=== PATIENT | female | born 1995 | race African-American/Black ===

== ENCOUNTER 2016-06-26 20:45 | Emergency (ER) | payer SELFPAY ==
[~2016-06-26 20:45] MED LIST: LORA10TA68 PO
[2016-06-26 21:02] VITALS: BP 146/87
--- NOTE | 2016-06-26 21:35 | PHYS DOC ---
General Chief Complaint: DIZZY/LIGHT HEADED Stated Complaint: LIGHT HEADED Time Seen by MD: 21:00 Source: patient, other Problems: History of Present Illness Initial Comments Patient with friend for nosebleed. Patient first tells me that she is here because of nosebleed which started about an hour and half prior to physician visit. She says she just suddenly started having a severe nosebleed that lasted about 20 minutes as well as unravel the story further, however, it appears that she is felt sick since Thursday. She's had a runny nose and nasal congestion productive of green nasal mucus. She also has some congested-type feelings in the bridge of the nose. She says she has a diffuse headache, but when asked where she hurts the most she seems to point the left frontal sinus area. She's had no sore throat. She does have a cough productive of green mucus as well. There is no chest pain or shortness of breath. There is no earache. No nausea vomiting or abdominal pain as no change amount or bladder habits no focal extremity or neurologic complaints are noted. She says her last period was the first of the month and she denies chance of . Patient has no history of injury or trauma to the face which would account for nosebleed. She's not had a nosebleed like this before. Patient's taken multiple [id number] cough and cold medications for this at home without help. She notes no other increased or decreasing factors. Patient's past medical history is otherwise unremarkable. She is a nonsmoker and nonuser of ethanol. It should be noted the patient's affect throughout the evaluation is somewhat hostile and challenging, and she appears to answer every question and participate in with exam with exasperated tone and affect. Allergies: Coded Allergies: No Known Drug Allergies (Unverified , 07/08/13) Past Medical History Medical History: no pertinent history Surgical History: noncontributory Social History Smoker: non-smoker Alcohol: none Review of Systems All Other Systems: Reviewed and Negative Physical Exam General Appearance: WD/WN, no apparent distress Eyes: bilateral eye EOMI, bilateral eye PERRL, bilateral eye normal inspection Ear, Nose, Throat: normal ENT inspection, normal pharynx, other Neck: full range of motion, supple, normal inspection Respiratory: lungs clear, normal breath sounds, no respiratory distress Cardiovascular: regular rate, rhythm, no edema Gastrointestinal: non tender, soft, no organomegaly Back: no CVA tenderness, no vertebral tenderness Extremities: non-tender, normal inspection, no pedal edema Neurologic/Psychiatric: liquid flavor compounder II-XII nml as tested, no motor/sensory deficits, alert, normal mood/affect, oriented x 3 Skin: normal color Lymphatic: no adenopathy Comments Generally this well-developed well-nourished black female in no acute distress. Vitals are as noted. Pertinent findings on physical exam shows a head atraumatic normocephalic. Pupils are equal reactive light and accommodation. Extra ocular movements are intact. Ears and throat are clear. The nose shows a small amount of clear nasal mucus. There is no active bleeding and no dried red blood. Is no signs of trauma. She is mildly tender over the ethmoid sinuses bilaterally and also over the left frontal sinus. Scalp is otherwise nontender. Neck is supple without adenopathy or JVD. There's no meningeal signs. Chest is clear and cardiac vascular exams unremarkable. Externally show no rashes, cyanosis, or edema. Neurologic exam shows patient awake alert oriented 4. Cranial nerves II grossly intact. Strength 5 over 5 equal all sites tested. There are no gross sensory deficits. She stands without difficulty and Romberg is negative. Affect is challenging as noted in history. Remainder of physical exam is clinically unremarkable. Orders, Labs, Meds Old charts note prior ER visits for gastroenteritis and achilles strain. I discussed with the patient the most likely cause her symptoms sounds like she has some sinusitis, and may have had a little bit of nosebleed from sinus irritation. I suggested that we'll we can certainly give her some prescription decongestant as well as get her started on some antibiotics. The patient seems very angry and agitated by this assessment. She says that it was not a "little nose bleed", and that she bled for 20 minutes. I indicated that I don't doubt which she says, but fortunately she is not actively bleeding now and I don't see any dried red blood in the nose. I really think this is probably from a sinus infection and I don't think labs or x-rays would be helpful to us. I did indicate that we'll give her an initial doses of medications here in the ED says she will have the prescription filled at night. I will write her prescriptions for Holden Christinassionex, and Amoxil, with the latter to a first dose tonight. We'll also discussed home care including rest, increasing fluids, use of steam treatments for her sinuses. I will advise her to follow-up with primary care or return to the ER sooner as needed if worsen anyway. She looks well, in no acute discomfort distress, okay for discharge home at this time. MARY MAHMOOD MD Jun 26, 2016 21:35
[2016-06-26] MEDS ORDERED: HYDROCODONE/CHLORPHEN POLIS 5 ML SUS.ER.12H. ONE (21:43)
[2016-06-26] MEDS ORDERED: AMOXICILLIN 500 MG CAPSULE ONE (21:43)
[2016-06-26] MEDS ORDERED: OXYMETAZOLINE 0.05% NASAL SPRAY 15ML BOTTLE. NS ONE ×2 (21:45→22:00)
[2016-06-26] MEDS ORDERED: AMOXICILLIN 500 MG CAPSULE PO ONE (22:00)
[2016-06-26] MEDS ORDERED: HYDROCODONE/CHLORPHEN POLIS 5 ML SUS.ER.12H. PO ONE (22:00)
== END 2016-06-26 21:50 | disposition home or self-care (01) ==
LOC: ER 20:45
DX: R04.0 Epistaxis (principal); J32.9 Chronic sinusitis, unspecified; R51 Headache
CPT/HCPCS: 99284

== ENCOUNTER 2016-11-01 09:51 | Emergency (ER) | payer SELFPAY ==
[~2016-11-01] VITALS: Ht 172.7 cm; Wt 63.5 kg
[2016-11-01 09:58] VITALS: BP 144/67
[2016-11-01] MEDS ORDERED: AMOX1TAB61 PO (10:54)
[2016-11-01] MEDS ORDERED: HYDR-971 PO (10:54)
--- NOTE | 2016-11-01 10:54 | PHYS DOC ---
Past History Past Medical History: No Pertinent History Past Surgical History: Other Smoking: Non-smoker Additional Smoking Information: 2ND HAND SMOKE Alcohol Use: None Drug Use: None Adult General Chief Complaint Chief Complaint: HEADACHE HPI HPI Patient is a 21-year-old female who complains of a cough, sinus congestion, and sinus headache for about 4 days. She has tried ibuprofen, Benadryl, and Sudafed as well as a multisymptom cold reliever. She is blowing green stuff out of her nose and also it is in the back of her throat. The medication she is trying aren 't helping and she can't sleep because her head is congested and has a headache. She has not had chronic headaches. She did have a bad sinus headache years ago that she thinks was like this. The pain is behind her eyes and feels like pressure. She has felt feverish but denies fever. Review of Systems Review of Systems Constitutional: Denies fever or chills [] HENT: As in history of present illness Respiratory: She has a cough but it sounds like it is coming from the back of her throat, not her lungs Allergies Allergies Allergies Coded Allergies Type Severity Reaction Last Updated Verified No Known Drug Allergies 07/08/13 No Physical Exam Physical Exam Constitutional: Well developed, well nourished, no acute distress, non-toxic appearance. Alert, mentating normally, she does have nasal stuffiness and a little cough. Swallowing without difficulty. HENT: Normocephalic, atraumatic, bilateral external ears normal, oropharynx moist, no oral exudates, throat clear without tonsillitis, nose normal. [] Eyes: conjunctiva normal, no discharge. [] Neck: Normal range of motion, no stridor. [] Skin: Warm, dry, no erythema, no rash. [] Extremities: No tenderness, no cyanosis, no clubbing, ROM intact, no edema. [] Neurologic: Alert and oriented X 3, normal motor function, no focal deficits noted. [] Current Patient Data Vital Signs Vital Signs Date Time Temp Pulse Resp B/P (MAP) Pulse Ox O2 Delivery O2 Flow Rate FiO2 11/01/16 09:58 97.4 70 16 100 Room Air EKG EKG [] Radiology/Procedures Radiology/Procedures [] Course & Med Decision Making Course & Med Decision Making Pertinent Labs and Imaging studies reviewed. (See chart for details) 21-year-old female with symptoms suggestive for sinusitis. The patient would like to take an antibiotic based on previous experience. See instructions for plan. [] Dragon Disclaimer Dragon Disclaimer This chart was dictated in whole or in part using Voice Recognition software in a busy, high-work load, and often noisy Emergency Department environment. It may contain unintended and wholly unrecognized errors or omissions. Departure Departure: Impression: Primary Impression: Sinusitis Additional Impression: Headache Disposition: HOME, SELF-CARE Condition: STABLE Referrals: PCP,PAUL (PCP) Patient Instructions: Sinusitis, [id number] Additional Instructions: I have prescribed antibiotics for a sinus infection. Take as directed. For headache pain, ibuprofen 800 mg every 6-8 hours as needed. For more severe pain, if needed, hydrocodone as directed. This is an opiate and will be sedating and constipating. No driving while taking it. It may be addictive, use sparingly. You may combine hydrocodone and ibuprofen if needed. Continue taking Sudafed for decongestant in addition to these medications. Plenty of fluids. Scripts Hydrocodone Bit/Acetaminophen (NORCO 5-325 TABLET) 1 Each Tablet 1 TAB PO PRN Q6HRS Y for PAIN, #10 TAB 0 Refills Prov: GRIS SPENCER MD 11/01/16 Amoxicillin/Potassium Clav (AUGMENTIN 875-125 TABLET) 1 Each Tablet 1 TAB PO BID, #14 TAB Prov: GRIS SPENCER MD 11/01/16 Problem Qualifiers GRIS SPENCER MD Nov 01, 2016 10:54
== END 2016-11-01 11:00 | disposition home or self-care (01) ==
LOC: ER 09:51
DX: J32.9 Chronic sinusitis, unspecified (principal); R51 Headache; Z77.22 Contact with and (suspected) exposure to environmental tobacco smoke (acute) (chronic)
CPT/HCPCS: 99283

== ENCOUNTER 2016-11-29 08:17 | Emergency (ER) | payer SELFPAY ==
[~2016-11-29 08:17] MED LIST changes: +AMOX1TAB61 PO; +HYDR-971 PO
[2016-11-29 08:26] VITALS: BP 140/72
[2016-11-29] MEDS ORDERED: IV NORMAL SALINE 1,000ML 1,000 ML IV SCH (08:33)
[2016-11-29] MEDS ORDERED: IV NORMAL SALINE 500ML 500 ML ONE (08:51)
[2016-11-29] MEDS ORDERED: ONDANSETRON PF 4 MG/2 ML VIAL. IV ONE (09:00)
[2016-11-29] MEDS ORDERED: KETOROLAC 30 MG/ML VIAL. IV ONE (09:00)
[2016-11-29 09:34] LABS: PREG TEST PT QUAL NEGATIVE (NEG)
[2016-11-29 09:35] LABS: BASO # 0.1 x10^3/uL (0.0-0.2); BASO % 1 % (0-3); EOS # 0.5 x10^3/uL (0.0-0.7); EOS % 5 % (0-3); HEMATOCRIT 35.8 % (36.0-47.0); LYMPH # 1.3 x10^3/uL (1.0-4.8); LYMPH % 15 % (24-48); MEAN CORPUSCULAR HEMOGLOBIN 29 pg (25-35); MEAN CORPUSCULAR HGB CONC 34 g/dL (31-37); MEAN CORPUSCULAR VOLUME 85 fL (79-100); MONO # 0.8 x10^3/uL (0.0-1.1); MONO % 9 % (0-9); NEUT # 6.3 x10^3uL (1.8-7.7); NEUT % 71 % (31-73); PLATELET COUNT 278 x10^3/uL (140-400); RED BLOOD COUNT 4.19 x10^6/uL (3.50-5.40); RED CELL DISTRIBUTION WIDTH 13.3 % (11.5-14.5); WHITE BLOOD COUNT 8.9 x10^3/uL (4.0-11.0)
--- NOTE | 2016-11-29 09:37 | PHYS DOC ---
Past History Past Medical History: No Pertinent History Past Surgical History: Other Smoking: Non-smoker Alcohol Use: None Drug Use: None Adult General Chief Complaint Chief Complaint: ABDOMINAL PAIN HPI HPI Patient is a 21-year-old female brought to the ED by her mother with the complaint of severe right lower quadrant abdominal pain which started about 2 hours ago. She didn't have the pain yesterday or last night. It woke her up this morning. "It's like period Pain only 1000 times worse" the patient is having vaginal bleeding this morning. Her last menstrual period was 2 or 3 weeks ago. Patient had similar pain about a month ago and was seen in the ER at [facility]. It sounds like they were concerned about appendicitis but after labs and CT scan it sounds like they did not make a diagnosis of appendicitis after all. She can't really remember what they did think was wrong. Patient has had nausea, vomiting, and diarrhea this morning. She has felt hot and cold and had sweats. She has not taken anything for her symptoms. Patient is in good general health without chronic medical problems. Review of Systems Review of Systems Constitutional: Denies fever or chills but has felt hot and cold and had sweats. HENT: Denies nasal congestion or sore throat [] Respiratory: Denies cough or shortness of breath [] Cardiovascular: Denies chest pain GI: As in history of present illness : Denies dysuria or hematuria [] Musculoskeletal: Denies back pain or joint pain [] Integument: Denies rash or skin lesions [] Neurologic: Denies headache, focal weakness or sensory changes [] Current Medications Current Medications Current Medications Medications (Trade) Dose Ordered Sig/Josh Start Time Stop Time Status Last Admin Dose Admin Fentanyl Citrate (Fentanyl 2ml Vial) 100 mcg 1X ONCE 11/29/16 09:00 11/29/16 09:01 DC 11/29/16 09:00 100 MCG Ketorolac Tromethamine (Toradol) 30 mg 1X ONCE 11/29/16 09:00 11/29/16 09:01 DC 11/29/16 09:00 30 MG Ondansetron HCl (Zofran) 4 mg 1X ONCE 11/29/16 09:00 11/29/16 09:01 DC 11/29/16 09:00 4 MG Sodium Chloride 500 ml @ As Directed STK-MED ONCE 11/29/16 08:51 11/29/16 08:52 DC Allergies Allergies Allergies Coded Allergies Type Severity Reaction Last Updated Verified No Known Drug Allergies 07/08/13 No Physical Exam Physical Exam Constitutional: Well developed, well nourished, crying, writhing on the bed. HENT: Normocephalic, atraumatic, bilateral external ears normal, nose normal. [ ] Eyes: conjunctiva normal, no discharge. [] Neck: Normal range of motion, no stridor. [] Cardiovascular:Heart rate regular rhythm, no murmur [] Lungs & Thorax: Bilateral breath sounds clear to auscultation [] Abdomen: Bowel sounds normal, soft, nondistended, no masses, no pulsatile masses. No left sided or upper abdominal tenderness. There is moderate tenderness in the suprapubic area and more significant tenderness in the right lower quadrant. The tenderness is lower than McBurney's point. There is no rebound or guarding. Skin: Warm, dry, no erythema, no rash. [] Extremities: No tenderness, no cyanosis, no clubbing, ROM intact, no edema. [] Neurologic: Alert and oriented X 3, normal motor function, no focal deficits noted. [] Current Patient Data Vital Signs Vital Signs Date Time Temp Pulse Resp B/P (MAP) Pulse Ox O2 Delivery O2 Flow Rate FiO2 11/29/16 09:24 16 100 11/29/16 08:26 74 Room Air EKG EKG [] Radiology/Procedures Radiology/Procedures Ultrasound of the pelvis read by the radiologist. No acute findings. I discussed the reading with the radiologist. There is good blood flow in both ovaries.[] Course & Med Decision Making Course & Med Decision Making Pertinent Labs and Imaging studies reviewed. (See chart for details) 21-year-old female presents with right lower quadrant abdominal/pelvic pain which woke her about 2 hours ago. The pain is lower than McBurney's point. It sounds like she was worked up for another episode of this pain about a month ago at [facility] and was found to not have appendicitis. The onset and quality of this pain does not suggest appendicitis. I discussed with the patient and her mother that we will check labs and give her some IV pain medication, they're agreeable to that plan. Patient was much more comfortable after IV pain medication. Labs unrevealing. test negative. Pelvic ultrasound unremarkable. The property and equipment clerk stated that the patient did not have any significant discomfort with transvaginal exam and she did not notice any bleeding on the probe. Discussed with the patient and her mother. This is a recurrent problem for her. I advised her to see a [facility] doctor to discuss her options for recurrent pain in conjunction with her menstrual periods. See instructions for plan. [] Dragon Disclaimer Dragon Disclaimer This chart was dictated in whole or in part using Voice Recognition software in a busy, high-work load, and often noisy Emergency Department environment. It may contain unintended and wholly unrecognized errors or omissions. Departure Departure: Impression: Primary Impression: Pelvic pain Additional Impression: Dysmenorrhea Disposition: HOME, SELF-CARE Condition: STABLE Referrals: PCP,PAUL (PCP) Patient Instructions: Dysmenorrhea, [id number] Additional Instructions: Today, we did not find any serious cause of your pain. We did not find any ovarian cyst or problem with blood flow to your ovary. We will treat your pain with anti-inflammatory pain medication but I recommend that you follow up with a [facility] doctor since you have had this pain more than once. Scripts Ibuprofen (IBUPROFEN) 800 Mg Tablet 1 TAB PO TID, #30 TAB Prov: GRIS SPENCER MD 11/29/16 Problem Qualifiers GRIS SPENCER MD Nov 29, 2016 09:37
[2016-11-29 09:52] LABS: ALBUMIN 3.4 g/dL (3.4-5.0); ALBUMIN/GLOBULIN RATIO 1.1 (1.0-1.7); CALCIUM 8.2 mg/dL (8.5-10.1); CREATININE 0.9 mg/dL (0.6-1.0); GFR 96.6; POTASSIUM 3.7 mmol/L (3.5-5.1); TOTAL BILIRUBIN 0.2 mg/dL (0.2-1.0); TOTAL PROTEIN 6.5 g/dL (6.4-8.2)
--- NOTE | 2016-11-29 11:24 | RAD ---
Pelvic ultrasound to include transabdominal and transvaginal imaging 11/29/2016 Clinical history: Pelvic pain since earlier today. Cramping. Technique: Using the distended urinary bladder as a sonographic window, a real-time ultrasound examination of the pelvis was performed. Additionally in and attempt to better evaluate the uterus and adnexa, a transvaginal ultrasound study was performed. Multiple images were obtained. Findings: The uterus is within normal limits in size and echogenicity. It measures 8.8 x 5.7 x 4.4 cm in longitudinal, transverse, and AP dimensions. The endometrial echo complex measures 4 mm in thickness which is within normal limits. No focal abnormality of the uterus is seen. Both ovaries are within normal limits in size and echogenicity. The right ovary measures 3.0 x 2.6 x 2.0 cm in size. The left ovary measures 3.3 x 2.3 x 1.2 cm in size. No adnexal mass is seen. A small amount of free fluid is seen within the pelvis. Impression: Small amount of free fluid is seen within the pelvis. Otherwise negative study.
[2016-11-29] MEDS ORDERED: IBUP800T19 PO (11:53)
== END 2016-11-29 12:02 | disposition home or self-care (01) ==
LOC: ER 08:17
DX: N94.6 Dysmenorrhea, unspecified (principal); R10.2 Pelvic and perineal pain; R11.2 Nausea with vomiting, unspecified; R19.7 Diarrhea, unspecified
CPT/HCPCS: 36415; 76830; 76856; 80053; 83690; 84703; 85025; 96361; 96374; 96375; 99285; J1885; J2405; J3010; J7030

== ENCOUNTER 2018-01-05 12:16 | Emergency (ER) | payer SELFPAY ==
[~2018-01-05] VITALS: Ht 172.7 cm; Wt 63.5 kg
[~2018-01-05 12:16] MED LIST changes: +IBUP800T19 PO
[2018-01-05 12:34] VITALS: BP 151/88
[2018-01-05 13:00] LABS: BACTERIA,URINE FEW /HPF (0-FEW); BILIRUBIN,URINE NEG (NEG); CLARITY,URINE HAZY; COLOR,URINE AMBER; GLUCOSE,URINE NEG (NEG); NITRITE,URINE NEG (NEG); RBC,URINE 0 /HPF (0-2); SQUAMOUS EPITHELIAL CELL,UR FEW /LPF; UROBILINOGEN,URINE 0.2 mg/dL (0.2 mg/dL); WBC,URINE RARE /HPF (0-4)
[2018-01-05] MEDS ORDERED: KETOROLAC 60 MG/2 ML VIAL. IM ONE (13:00)
--- NOTE | 2018-01-05 13:16 | PHYS DOC ---
Past History Past Medical History: No Pertinent History Past Surgical History: Other Smoking: Non-smoker Alcohol Use: None Drug Use: None Adult General Chief Complaint Chief Complaint: ABDOMINAL PAIN HPI HPI Patient is a 22 year old female who presents with complaining of abdominal pain since last night. Patient complaining of sudden onset of periumbilical pain as a sharp pain at 2300 during intercourse as a constant pain that didn't better and worse. Patient rated her pain 8/10 and states she had 1 episode of vomiting last night. Patient denies urinary symptoms, vaginal bleeding or spotting, fever and chills, history of the same pain. LMP was December 12 patient states she has irregular menstruation. Review of Systems Review of Systems Constitutional: Denies fever or chills [] Eyes: Denies change in visual acuity, redness, or eye pain [] HENT: Denies nasal congestion or sore throat [] Respiratory: Denies cough or shortness of breath [] Cardiovascular: No additional information not addressed in HPI [] GI: Reports abdominal pain, denies nausea, vomiting, bloody stools or diarrhea [ ] : Denies dysuria or hematuria [] Musculoskeletal: Denies back pain or joint pain [] Integument: Denies rash or skin lesions [] Neurologic: Denies headache, focal weakness or sensory changes [] Endocrine: Denies polyuria or polydipsia [] All other systems were reviewed and found to be within normal limits, except as documented in this note. Current Medications Current Medications Current Medications Medications (Trade) Dose Ordered Sig/[facility] Start Time Stop Time Status Last Admin Dose Admin Ketorolac Tromethamine (Toradol Im) 60 mg 1X ONCE 01/05/18 13:00 01/05/18 13:01 Allergies Allergies Allergies Coded Allergies Type Severity Reaction Last Updated Verified No Known Drug Allergies 07/08/13 No Physical Exam Physical Exam Constitutional: Well developed, well nourished, mild distress, non-toxic appearance. [] HENT: Normocephalic, atraumatic. [] Eyes: PERRLA, EOMI, conjunctiva normal, no discharge. [] Neck: Normal range of motion, no tenderness, supple, no stridor. [] Cardiovascular:Heart rate regular rhythm, no murmur [] Lungs & Thorax: Bilateral breath sounds clear to auscultation [] Abdomen: Bowel sounds normal, soft, no tenderness, no masses, no pulsatile masses. Vaginal exam in present of tripe finisher showed normal external genitalia, small amount of white discharge in cervix without adnexal tenderness or mass or bleeding. Skin: Warm, dry, no erythema, no rash. [] Back: No tenderness, no CVA tenderness. [] Extremities: No tenderness, no cyanosis, no clubbing, ROM intact, no edema. [] Neurologic: Alert and oriented X 3, normal motor function, normal sensory function, no focal deficits noted. [] Psychologic: Affect normal, judgement normal, mood normal. [] Current Patient Data Vital Signs Vital Signs Date Time Temp Pulse Resp B/P (MAP) Pulse Ox O2 Delivery O2 Flow Rate FiO2 01/05/18 12:34 98.5 86 16 100 Room Air Lab Results Laboratory Tests Test 01/05/18 12:45 POC Urine HCG, Qualitative hcg negative (Negative) EKG EKG [] Radiology/Procedures Radiology/[place] [address] IMAGING REPORT Signed PATIENT: NELSON WILSON ACCOUNT: [id number] : 1995 LOCATION: ER AGE: 22 SEX: F EXAM STATUS: REG ER ORD. PHYSICIAN: DAVID ARCHULETA MD REASON: pain after intercourse PROCEDURE: US PELVIS W/TV US PELVIS W/TV Clinical Indication: pt c/o supraumbilical pain since intercourse 01/05/18 2300 Comparison: Pelvic ultrasound, November 29, 2016. TECHNIQUE: Real-time ultrasound imaging of the pelvis using transabdominal and transvaginal window is performed. Findings: Uterus measures 9.6 x 5.4 x 4.1 cm. Questionable hypoechogenicity of the posterior uterine body may be an 11 mm fibroid. The endometrial stripe near the fundus measures 17 mm, in the body measures 8 mm. There is normal blood flow in the ovaries. No evidence of adnexal mass. Ovaries are similar in size. No pelvic free fluid. There is an isoechoic lesion of the right ovary measuring up to 1.9 cm. Appearance is nonspecific but may be a hemorrhagic cyst. IMPRESSION: 1. Question small hemorrhagic cyst of the right ovary. 2. No pelvic free fluid. 3. Normal blood flow in the ovaries. Electronically signed by: Gómez Guerrero MD (01/05/2018 1:52 PM) [id number] DICTATED AND SIGNED BY: GÓMEZ GUERRERO MD DATE: 01/05/18 1345 CC: DAVID ARCHULETA MD; PCP,NO ~ Course & Med Decision Making Course & Med Decision Making Pertinent Labs and Imaging studies reviewed. (See chart for details) Evaluation of patient in ER showed 22-year-old male patient with complaining of abdominal pain after intercourse. Patient had unremarkable physical exam and labs. Ultrasound showed possible small right ovarian hemorrhagic cyst. Patient felt better with treatment in ER and instructed to follow up with her primary care physician. Dragon Disclaimer Dragon Disclaimer This electronic medical record was generated, in whole or in part, using a voice recognition dictation system. Departure Departure: Impression: Primary Impression: Hemorrhagic cyst of right ovary Additional Impression: Abdominal pain Disposition: HOME, SELF-CARE (at 1424) Condition: IMPROVED Referrals: PCP,PAUL (PCP) Patient Instructions: Ovarian Cyst Additional Instructions: Drink plenty of liquids Follow-up with your primary care physician in 3-5 days Return to ER if not getting better Scripts Tramadol Hcl (ULTRAM) 50 Mg Tablet 50 MG PO PRN Q6HRS PRN for PAIN, #20 TAB Prov: DAVID ARCHULETA MD 01/05/18 Problem Qualifiers DAVID ARCHULETA MD Jan 05, 2018 13:16
--- NOTE | 2018-01-05 13:55 | RAD ---
US PELVIS W/TV Clinical Indication: pt c/o supraumbilical pain since intercourse 01/05/18 2300 Comparison: Pelvic ultrasound, November 29, 2016. TECHNIQUE: Real-time ultrasound imaging of the pelvis using transabdominal and transvaginal window is performed. Findings: Uterus measures 9.6 x 5.4 x 4.1 cm. Questionable hypoechogenicity of the posterior uterine body may be an 11 mm fibroid. The endometrial stripe near the fundus measures 17 mm, in the body measures 8 mm. There is normal blood flow in the ovaries. No evidence of adnexal mass. Ovaries are similar in size. No pelvic free fluid. There is an isoechoic lesion of the right ovary measuring up to 1.9 cm. Appearance is nonspecific but may be a hemorrhagic cyst. IMPRESSION: 1. Question small hemorrhagic cyst of the right ovary. 2. No pelvic free fluid. 3. Normal blood flow in the ovaries. Electronically signed by: Gómez Travis MD (01/05/2018 1:52 PM) [id number]
[2018-01-05] MEDS ORDERED: TRAM-48 PO (14:25)
[2018-01-06 15:08] LABS: CHLAMYDIA PROBE Negative (Negative)
== END 2018-01-05 14:42 | disposition home or self-care (01) ==
LOC: ER 12:16
DX: N83.291 Other ovarian cyst, right side (principal)
CPT/HCPCS: 36415; 76830; 76856; 81001; 81025; 87491; 87591; 96372; 99285; J1885; Q0111

== ENCOUNTER 2018-07-22 19:09 | Emergency (ER) | payer SELFPAY ==
[~2018-07-22] VITALS: Ht 172.7 cm; Wt 61.2 kg
[~2018-07-22 19:09] MED LIST changes: +HYDR-3165 PO; -HYDR-971 PO; +TRAM-48 PO
[2018-07-22 19:10] VITALS: BP 144/89
[2018-07-22] MEDS ORDERED: PENICILLIN V K 250 MG TABLET. PO STA (19:26)
[2018-07-22] MEDS ORDERED: HYDROcodone/APAP 7.5/325MG 1 TAB TABLET PO ONE (19:30)
[2018-07-22] MEDS ORDERED: HYDR-3165 PO (19:30)
[2018-07-22] MEDS ORDERED: PENI500T PO (19:30)
--- NOTE | 2018-07-22 19:30 | PHYS DOC ---
Past History Past Medical History: No Pertinent History Past Surgical History: Other Smoking: Non-smoker Alcohol Use: None Drug Use: None Adult General Chief Complaint Chief Complaint: DENTAL PROBLEM HPI HPI Patient is a 23 year old female who presents with complaint of jaw pain. Patient states that she is having pain along the right upper portion of her mouth near her back molar. States that this has been present over the past 2 da ys and is significantly worsened today. Denies any known fevers. States that her pain is currently 10 out of 10. Has taken [id number] medication with no relief. States it is painful when she opens her jaw. Denies doubling of vision. Review of Systems Review of Systems Constitutional: Denies fever or chills [] Eyes: Denies change in visual acuity, redness, or eye pain [] HENT: Facial swelling, right jaw pain[] Respiratory: Denies cough or shortness of breath [] Cardiovascular: Denies chest pain or edema[] GI: Denies abdominal pain, nausea, vomiting, bloody stools or diarrhea [] : Denies dysuria or hematuria [] Musculoskeletal: Denies back pain or joint pain [] Integument: Denies rash or skin lesions [] Neurologic: Denies headache, focal weakness or sensory changes [] All other systems were reviewed and found to be within normal limits, except as documented in this note. Allergies Allergies Allergies Coded Allergies Type Severity Reaction Last Updated Verified No Known Drug Allergies 07/22/18 No Physical Exam Physical Exam Constitutional: Alert, afebrile, appears in moderate to severe discomfort. [] HENT: Normocephalic, atraumatic, mild to moderate soft tissue swelling along right zygoma, bilateral external ears normal, oropharynx moist, right buccal mucosal erythema, tooth #1 ground completely disintegrated with exposed root, tenderness palpation along root of tooth #1, no oral exudates, nose normal. [] Eyes: PERRLA, EOMI, conjunctiva normal, no discharge. [] Neck: Normal range of motion, no tenderness, supple, no stridor. [] Cardiovascular:Heart rate regular rhythm, no murmur [] Lungs & Thorax: Bilateral breath sounds clear to auscultation [] Abdomen: Bowel sounds normal, soft, no tenderness, no masses, no pulsatile masses. [] Skin: Warm, dry, no erythema, no rash. [] Back: No tenderness, no CVA tenderness. [] Extremities: No tenderness, no cyanosis, no clubbing, ROM intact, no edema. [] Neurologic: Alert and oriented X 3, normal motor function, normal sensory function, no focal deficits noted. [] Current Patient Data Vital Signs Vital signs were reviewed and were stable Lab Results Not performed EKG EKG Not performed[] Radiology/Procedures Radiology/Procedures Not performed[] Course & Med Decision Making Course & Med Decision Making Pertinent Labs and Imaging studies reviewed. (See chart for details) Patient's clinical presentation consistent with dental infection. Treated with [place] and penicillin VK in the emergency department. We'll continue on 10 day course of penicillin. Referred to Dr. Alberts of oral maxillofacial surgery for follow-up in the next 4 days. Recommended return to the emergency department for any worsening symptoms. Patient was understanding and in agreement with treatment plan.[] Dragon Disclaimer Dragon Disclaimer This electronic medical record was generated, in whole or in part, using a voice recognition dictation system. Departure Departure: Impression: Primary Impression: Dental infection Disposition: 01 HOME, SELF-CARE Condition: IMPROVED Referrals: PCPPAUL (PCP) OMAR ALBERTS DMD Patient Instructions: Dental Pain Additional Instructions: Follow-up with Dr. Alberts in the next 4 days for reevaluation. Return to the emergency department for any worsening symptoms. Scripts Hydrocodone Bit/Acetaminophen (NORCO 5-325 TABLET) 1 Each Tablet 1-2 TAB PO Q4-6HRS PRN for PAIN, #20 TAB Prov: OSVALDO ALICIA MD 07/22/18 Penicillin V Potassium (PENICILLIN V POTASSIUM) 500 Mg Tablet 1 TAB PO QID, #40 TAB Prov: OSVALDO ALICIA MD 07/22/18 OSVALDO ALICIA MD July 22, 2018 19:30
== END 2018-07-22 19:36 | disposition home or self-care (01) ==
LOC: ER 19:13
DX: K04.7 Periapical abscess without sinus (principal)
CPT/HCPCS: 99283

== ENCOUNTER 2019-01-07 11:05 | Emergency (ER) | payer SELFPAY ==
[~2019-01-07] VITALS: Ht 172.7 cm; Wt 61.2 kg
[~2019-01-07 11:05] MED LIST changes: +PENI500T PO
[2019-01-07 11:08] VITALS: BP 120/68
[2019-01-07] MEDS ORDERED: ONDANSETRON PF 4 MG/2 ML VIAL. IVP ONE (11:30)
[2019-01-07 11:36] LABS: BASO # 0.1 x10^3/uL (0.0-0.2); BASO % 1 % (0-3); EOS # 0.4 x10^3/uL (0.0-0.7); EOS % 6 % (0-3); HEMATOCRIT 42.7 % (36.0-47.0); HEMOGLOBIN 13.6 g/dL (12.0-15.5); LYMPH % 27 % (24-48); MEAN CORPUSCULAR HEMOGLOBIN 27 pg (25-35); MEAN CORPUSCULAR HGB CONC 32 g/dL (31-37); MEAN CORPUSCULAR VOLUME 84 fL (79-100); MONO # 0.7 x10^3/uL (0.0-1.1); MONO % 10 % (0-9); NEUT # 4.2 x10^3uL (1.8-7.7); NEUT % 56 % (31-73); PLATELET COUNT 440 x10^3/uL (140-400); RED BLOOD COUNT 5.09 x10^6/uL (3.50-5.40); RED CELL DISTRIBUTION WIDTH 17.7 % (11.5-14.5); WHITE BLOOD COUNT 7.5 x10^3/uL (4.0-11.0)
[2019-01-07 11:48] LABS: PREG TEST PT QUAL NEGATIVE (NEG)
[2019-01-07 11:51] LABS: ALBUMIN 4.3 g/dL (3.4-5.0); ALBUMIN/GLOBULIN RATIO 0.9 (1.0-1.7); CALCIUM 9.2 mg/dL (8.5-10.1); CREATININE 0.8 mg/dL (0.6-1.0); GFR 108.5; POTASSIUM 4.4 mmol/L (3.5-5.1); TOTAL BILIRUBIN 0.2 mg/dL (0.2-1.0); TOTAL PROTEIN 8.9 g/dL (6.4-8.2)
--- NOTE | 2019-01-07 14:05 | ED.ADGEN ---
Past History Past Medical History: No Pertinent History Past Surgical History: Other Additional Past Surgical Histo: achilles tendon Smoking: Non-smoker Alcohol Use: None Drug Use: Marijuana Adult General Chief Complaint Chief Complaint Pelvic pain HPI HPI Patient is a 23-year-old -French female who presents with acute onset right lower quadrant/pelvic pain starting earlier this patient also reports muscle cramps, low back pain and vaginal bleeding starting yesterday. Last menstrual period was 2 weeks prior to ED arrival. Patient has an IUD in place. States she suffers from severe menstrual cramps but today's symptoms's pain is worse than prior episodes. No nausea vomiting. No urinary urgency or frequency. No fever chills or sweats. No other acute symptoms or complaints.[] Review of Systems Review of Systems Review of symptoms as per history of present illness. All other review symptoms are negative. All other systems were reviewed and found to be within normal limits, except as documented in this note. Current Medications Current Medications Current Medications Medications (Trade) Dose Ordered Sig/Josh Start Time Stop Time Status Last Admin Dose Admin Fentanyl Citrate (Fentanyl 2ml Vial) 75 mcg 1X ONCE 01/07/19 11:30 01/07/19 11:31 DC 01/07/19 11:34 75 MCG Morphine Sulfate (Morphine 4mg Syringe) 4 mg 1X ONCE 01/07/19 14:15 01/07/19 14:16 DC 01/07/19 14:01 4 MG Ondansetron HCl (Zofran) 4 mg 1X ONCE 01/07/19 11:30 01/07/19 11:31 DC 01/07/19 11:34 4 MG Allergies Allergies Allergies Coded Allergies Type Severity Reaction Last Updated Verified No Known Drug Allergies 07/22/18 No Physical Exam Physical Exam Constitutional: Well developed, well nourished, anxious, moderate discomfort secondary to pain.. [] HENT: Normocephalic, atraumatic, bilateral external ears normal, oropharynx m oist, no oral exudates, nose normal. [] Eyes: PERRLA, EOMI, conjunctiva normal, no discharge. [] Neck: Normal range of motion, no tenderness, supple, no stridor. [] Cardiovascular:Heart rate regular rhythm, no murmur [] Lungs & Thorax: Bilateral breath sounds clear to auscultation [] Abdomen: Bowel sounds normal, soft, soft, nontender.. [] Skin: Warm, dry, no erythema, no rash. [] Back: No tenderness, no CVA tenderness. [] Psychologic: Affect anxious. [] Current Patient Data Vital Signs Vital Signs Date Time Temp Pulse Resp B/P (MAP) Pulse Ox O2 Delivery O2 Flow Rate FiO2 01/07/19 14:01 16 98 01/07/19 11:08 98.3 85 Room Air Lab Results Laboratory Tests Test 01/07/19 11:24 01/07/19 14:30 White Blood Count 7.5 x10^3/uL (4.0-11.0) Red Blood Count 5.09 x10^6/uL (3.50-5.40) Hemoglobin 13.6 g/dL (12.0-15.5) Hematocrit 42.7 % (36.0-47.0) Mean Corpuscular Volume 84 fL (79-100) Mean Corpuscular Hemoglobin 27 pg (25-35) Mean Corpuscular Hemoglobin Concent 32 g/dL (31-37) Red Cell Distribution Width 17.7 % (11.5-14.5) H Platelet Count 440 x10^3/uL (140-400) H Neutrophils (%) (Auto) 56 % (31-73) Lymphocytes (%) (Auto) 27 % (24-48) Monocytes (%) (Auto) 10 % (0-9) H Eosinophils (%) (Auto) 6 % (0-3) H Basophils (%) (Auto) 1 % (0-3) Neutrophils # (Auto) 4.2 x10^3uL (1.8-7.7) Lymphocytes # (Auto) 2.0 x10^3/uL (1.0-4.8) Monocytes # (Auto) 0.7 x10^3/uL (0.0-1.1) Eosinophils # (Auto) 0.4 x10^3/uL (0.0-0.7) Basophils # (Auto) 0.1 x10^3/uL (0.0-0.2) Sodium Level 143 mmol/L (136-145) Potassium Level 4.4 mmol/L (3.5-5.1) Chloride Level 105 mmol/L (98-107) Carbon Dioxide Level 27 mmol/L (21-32) Anion Gap 11 (6-14) Blood Urea Nitrogen 5 mg/dL (7-20) L Creatinine 0.8 mg/dL (0.6-1.0) Estimated GFR (Cockcroft-Gault) 108.5 BUN/Creatinine Ratio 6 (6-20) Glucose Level 84 mg/dL (70-99) Calcium Level 9.2 mg/dL (8.5-10.1) Total Bilirubin 0.2 mg/dL (0.2-1.0) Aspartate Amino Transferase (AST) 20 U/L (15-37) Alanine Aminotransferase (ALT) 20 U/L (14-59) Alkaline Phosphatase 44 U/L (46-116) L Total Protein 8.9 g/dL (6.4-8.2) H Albumin 4.3 g/dL (3.4-5.0) Albumin/Globulin Ratio 0.9 (1.0-1.7) L Serum Test, Qualitative Negative (NEG) Urine Collection Type Unknown Urine Color Yellow Urine Clarity Hazy Urine pH 8.5 Urine Specific [place] 1.015 Urine Protein Neg (NEG-TRACE) Urine Glucose (UA) Neg mg/dL (NEG) Urine Ketones (Stick) Neg mg/dL (NEG) Urine Blood Large (NEG) Urine Nitrite Neg (NEG) Urine Bilirubin Neg (NEG) Urine Urobilinogen Dipstick 0.2 mg/dL (0.2 mg/dL) Urine Leukocyte Esterase Neg (NEG) Urine RBC Occ /HPF (0-2) Urine WBC 20-40 /HPF (0-4) Urine Squamous Epithelial Cells Mod /LPF Urine Bacteria 0 /HPF (0-FEW) EKG EKG [] Radiology/Procedures Radiology/Procedures [Pelvic ultrasound: No acute findings per radiology report] Course & Med Decision Making Course & Med Decision Making Pertinent Labs and Imaging studies reviewed. (See chart for details) [No acute lab were ultrasound findings. Recommendations are for supportive care with PIPELAYING FITTER follow-up. Return precautions reviewed.] Final Impression Final Impression [#1 pelvic pain and female #2 dysfunctional uterine bleeding] Dragon Disclaimer Dragon Disclaimer This electronic medical record was generated, in whole or in part, using a voice recognition dictation system. JOSELINE HELLER DO Jan 07, 2019 14:05
[2019-01-07] MEDS ORDERED: MORPHINE SULFATE 4 MG/ML DISP.SYRIN. IV ONE (14:15)
--- NOTE | 2019-01-07 14:50 | RAD ---
US PELVIS W/TV Clinical Indication: Menstrual cramps. Comparison: Pelvic ultrasound, January 05, 2018. TECHNIQUE: Real-time ultrasound imaging of the pelvis using transabdominal and transvaginal window is performed. Findings: Uterus measures 7.2 x 3.4 x 3.9 cm. No focal abnormality. Uterus is anteverted. Endometrial stripe is normal measuring 4 mm. The ovaries are normal. No evidence of adnexal mass. No pelvic free fluid. Urinary bladder unremarkable. IMPRESSION: Unremarkable pelvic ultrasound. Electronically signed by: Gómez Travis MD (01/07/2019 2:47 PM) [id number]
[2019-01-07 15:10] LABS: BACTERIA,URINE 0 /HPF (0-FEW); BILIRUBIN,URINE NEG (NEG); CLARITY,URINE HAZY; COLOR,URINE YELLOW; GLUCOSE,URINE NEG (NEG); NITRITE,URINE NEG (NEG); SQUAMOUS EPITHELIAL CELL,UR MOD /LPF; UROBILINOGEN,URINE 0.2 mg/dL (0.2 mg/dL)
[2019-01-07 15:17] LABS: WBC,URINE OCC /HPF (0-4)
[2019-01-07 15:21] LABS: RBC,URINE 20-40 /HPF (0-2)
== END 2019-01-07 15:17 | disposition home or self-care (01) ==
LOC: ER 11:05
DX: N93.8 Other specified abnormal uterine and vaginal bleeding (principal)
CPT/HCPCS: 36415; 76830; 76856; 80053; 81001; 84703; 85025; 96374; 96375; 99285; J2270; J2405; J3010

== ENCOUNTER 2019-03-04 14:16 | Emergency (ER) | payer SELFPAY ==
[~2019-03-04] VITALS: Ht 172.7 cm; Wt 61.9 kg
--- NOTE | 2019-03-04 14:32 | PHYS DOC ---
Past History Past Medical History: No Pertinent History Past Surgical History: Other Additional Past Surgical Histo: achilles tendon Smoking: Non-smoker Alcohol Use: None Drug Use: Marijuana Adult General Chief Complaint Chief Complaint: HAND PROBLEM [facility] HPI Patient is a 23-year-old female who presents with complaint of hand pain and injury after falling down stairs and hitting her hand last night. Patient rates pain as moderate to severe. Patient states that pain is worsened with movement. She denies any other injuries.[] Review of Systems Review of Systems Constitutional: Denies fever or chills [] Respiratory: Denies cough or shortness of breath [] Cardiovascular: No additional information not addressed in HPI [] Musculoskeletal: Positive left hand pain [] Integument: Denies rash or skin lesions [] Allergies Allergies Allergies Coded Allergies Type Severity Reaction Last Updated Verified No Known Drug Allergies 03/04/19 No Physical Exam Physical Exam Constitutional: Well developed, well nourished, no acute distress, non-toxic appearance. [] Cardiovascular:Heart rate regular rhythm, no murmur [] Lungs & Thorax: Bilateral breath sounds clear to auscultation [] Extremities: Examination of left hand demonstrates moderate tenderness to palpation around the fourth metacarpal with small amount of soft tissue swelling in this area. [] Neurologic: Alert and oriented X 3, no focal deficits noted. [] EKG EKG [] Radiology/Procedures Radiology/Procedures [] Impressions: PROCEDURE: HAND LEFT 3V EXAM: Left hand, 3 views. HISTORY: Pain. COMPARISON: None. FINDINGS: 3 views of the left hand are obtained. There is a mildly displaced oblique fracture of the fourth metacarpal. This extends to the base of the fourth metacarpal. No additional fracture is seen. There is no foreign body. 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 IMPRESSION: Mildly displaced fracture of the lower metacarpal. Electronically signed by: Michell Clarke MD (03/04/2019 2:40 PM) [id number] Course & Med Decision Making Course & Med Decision Making Pertinent Labs and Imaging studies reviewed. (See chart for details) [] Dragon Disclaimer Dragon Disclaimer This electronic medical record was generated, in whole or in part, using a voice recognition dictation system. Departure Departure: Impression: Primary Impression: Fracture of fourth metacarpal bone of left hand Disposition: 01 HOME, SELF-CARE Condition: STABLE Referrals: PCP,PAUL (PCP) VINEET BOOTH MD Patient Instructions: Hand Fracture, Metacarpals Additional Instructions: Call to schedule follow-up appointment with orthopedist. Scripts Hydrocodone Bit/Acetaminophen (NORCO 5-325 TABLET) 1 Each Tablet 1 TAB PO PRN Q6HRS PRN for PAIN, #12 TAB 0 Refills Prov: ZAINAB CLEMENTE Jr. DO 03/04/19 Diclofenac Sodium (DICLOFENAC SODIUM) 50 Mg Tablet.dr 1 TAB PO BID PRN for PAIN, #20 TAB Prov: ZAINAB CLEMENTE Jr. DO 03/04/19 Problem Qualifiers Primary Impression: Fracture of fourth metacarpal bone of left hand Encounter type: initial encounter Fracture type: closed Metacarpal location: unspecified portion of metacarpal Fracture alignment: displaced Qualified Codes: S62.305A - Unspecified fracture of fourth metacarpal bone, left hand, initial encounter for closed fracture ZAINAB CLEMENTE Jr. DO Mar 04, 2019 14:32
--- NOTE | 2019-03-04 14:43 | RAD ---
EXAM: Left hand, 3 views. HISTORY: Pain. COMPARISON: None. FINDINGS: 3 views of the left hand are obtained. There is a mildly displaced oblique fracture of the fourth metacarpal. This extends to the base of the fourth metacarpal. No additional fracture is seen. There is no foreign body. 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 IMPRESSION: Mildly displaced fracture of the lower metacarpal. Electronically signed by: Michell Clarke MD (03/04/2019 2:40 PM) [facility]
[2019-03-04] MEDS ORDERED: HYDR-3165 PO (15:10)
[2019-03-04] MEDS ORDERED: DICL50TA4 PO (15:10)
[2019-03-04] MEDS ORDERED: HYDROcodone/APAP 5/325MG 1 TAB TABLET ONE (15:17)
[2019-03-04 15:26] VITALS: BP 142/79
[2019-03-04] MEDS ORDERED: HYDROcodone/APAP 5/325MG 1 TAB TABLET PO ONE (15:30)
== END 2019-03-04 15:29 | disposition home or self-care (01) ==
LOC: ER 14:16
DX: S62.305A Unspecified fracture of fourth metacarpal bone, left hand, initial encounter for closed fracture (principal); W10.8XXA Fall (on) (from) other stairs and steps, initial encounter; Y93.89 Activity, other specified; Y92.89 Other specified places as the place of occurrence of the external cause; Y99.8 Other external cause status
CPT/HCPCS: 29125; 73130; 99284

== ENCOUNTER 2019-03-07 12:05 | Emergency (ER) | payer SELFPAY ==
[~2019-03-07] VITALS: Ht 172.7 cm; Wt 61.9 kg
[~2019-03-07 12:05] MED LIST changes: +DICL50TA4 PO
[2019-03-07 12:24] VITALS: BP 128/46
--- NOTE | 2019-03-07 12:35 | PHYS DOC ---
Past History Past Medical History: No Pertinent History Past Surgical History: No Surgical History Additional Past Surgical Histo: achilles tendon Smoking: Non-smoker Alcohol Use: None Drug Use: None Adult General Chief Complaint Chief Complaint: HAND PROBLEM HPI HPI Patient is a 23-year-old female who presents with complaint of continued hand pain and swelling after being seen here on the and diagnosed with metacarpal fracture. Patient states that she is not able to get in to see orthopedist until this Thursday. Patient states that she just wanted to have her hand looked at again because she has had an increase in swelling since she was last seen.[] Review of Systems Review of Systems Constitutional: Denies fever or chills [] Respiratory: Denies cough or shortness of breath [] Cardiovascular: No additional information not addressed in HPI [] Musculoskeletal: Positive left hand pain [] Allergies Allergies Allergies Coded Allergies Type Severity Reaction Last Updated Verified No Known Drug Allergies 03/04/19 No Physical Exam Physical Exam Constitutional: Well developed, well nourished, no acute distress, non-toxic appearance. [] Cardiovascular: Regular rate and rhythm[] Lungs & Thorax: Bilateral breath sounds clear to auscultation [] Extremities: Examination of left hand demonstrates tenderness primarily in the dorsal aspect of the hand overlying the fourth metacarpal with surrounding soft tissue swelling. [] Current Patient Data Vital Signs Vital Signs Date Time Temp Pulse Resp B/P (MAP) Pulse Ox O2 Delivery O2 Flow Rate FiO2 03/07/19 12:24 98 18 98 Room Air EKG EKG [] Radiology/Procedures Radiology/Procedures [] Course & Med Decision Making Course & Med Decision Making Pertinent Labs and Imaging studies reviewed. (See chart for details) [] Dragon Disclaimer Dragon Disclaimer This electronic medical record was generated, in whole or in part, using a voice recognition dictation system. Departure Departure: Impression: Primary Impression: Fracture of fourth metacarpal bone Disposition: HOME, SELF-CARE Condition: STABLE Referrals: PCP,NO (PCP) Patient Instructions: Hand Fracture, Metacarpals Additional Instructions: Wear hand splint as directed and keep appointment with orthopedist. Problem Qualifiers Primary Impression: Fracture of fourth metacarpal bone Encounter type: subsequent encounter Fracture type: closed Metacarpal location: unspecified portion of metacarpal Fracture alignment: displaced Laterality: left Fracture healing: with routine healing Qualified Codes: S62.305D - Unspecified fracture of fourth metacarpal bone, left hand, subsequent encounter for fracture with routine healing ZAINAB CLEMENTE Jr. DO Mar 07, 2019 12:35
== END 2019-03-07 13:01 | disposition home or self-care (01) ==
LOC: ER 12:05
DX: S62.305D Unspecified fracture of fourth metacarpal bone, left hand, subsequent encounter for fracture with routine healing (principal); X58.XXXD Exposure to other specified factors, subsequent encounter
CPT/HCPCS: 99281

== ENCOUNTER 2019-09-03 13:36 | Emergency (ER) | payer SELFPAY ==
[~2019-09-03] VITALS: Ht 172.7 cm; Wt 68.7 kg
[2019-09-03] MEDS ORDERED: KETOROLAC 30 MG/ML VIAL. IM ONE (14:00)
[2019-09-03] MEDS ORDERED: NEOMY/BACITR/POLYMYXIN OINT PACKET. TP ONE (14:00)
--- NOTE | 2019-09-03 14:11 | RAD ---
3 views left hand dated 09/03/2019. Comparison made to 03/04/2019. CLINICAL INDICATION: Pain after injury. FINDINGS: 3 views of left hand show an oblique fracture through the proximal one third shaft of the fourth metacarpal. This is in the same region as the prior exam and there is some persistent radiolucency through the shaft. There is some cortical thickening and periosteal thickening suggestive of some healing. IMPRESSION: 1. There is a fracture of the proximal fourth metacarpal shaft which was present on the 03/04/2019 exam. There is a persistent radiolucent line which could be related to incomplete healing, although refracture of a previously healed fracture is also possible. Correlate clinically. Electronically signed by: Dagoberto Shipman MD (09/03/2019 2:09 PM) [id number]
--- NOTE | 2019-09-03 14:32 | PHYS DOC ---
Past History Past Medical History: No Pertinent History Additional Past Surgical Histo: achilles tendon Smoking: Non-smoker Alcohol Use: Occasionally Drug Use: None General Adult EDM: Chief Complaint: HAND PROBLEM HPI: HPI: 24-year-old female presents with report of left hand pain which started 4-5 days ago after patient was wrestling with her older brother and hit him with her left hand. Patient reports concern for reoccurrence of fracture as she had broken the same bone back in February 2019. Patient reports at that time she had seen an orthopedic surgeon who had advised she may need surgery. Patient reports she could not afford the surgery at that time and therefore was treated with a splint only. Patient also reports discomfort to the bottom of her right great toe where she has a ulceration. Patient reports she had recently been out for wheeling with some friends and was also drinking alcohol at the time. Reports she does not remember significant injury that might explain her abrasion. Reports is been treating it with [id number] antibiotic ointment. Denies increased swelling or increased redness. Denies . Reports she last took Tylenol at 0900 for pain. Review of Systems: Review of Systems: Constitutional: Denies fever or chills : Denies Musculoskeletal: Reports left hand pain and swelling Integument: Reports lesions to right big toe and dorsum at base of pinky toe Neurologic: Denies headache, focal weakness or sensory changes Complete systems were reviewed and found to be within normal limits, except as documented in this note. Current Medications: Current Meds: Current Medications Medications (Trade) Dose Ordered Sig/Josh Start Time Stop Time Status Last Admin Dose Admin Ketorolac Tromethamine (Toradol 30mg Vial) 30 mg 1X ONCE 09/03/19 14:00 09/03/19 14:01 DC 09/03/19 14:09 30 MG Neomycin/ Polymyxin/ Bacitracin (Triple Antibiotic Ointment) 1 pkt 1X ONCE 09/03/19 14:00 09/03/19 14:01 DC 09/03/19 14:07 1 PKT Allergies: Allergies: Allergies Coded Allergies Type Severity Reaction Last Updated Verified No Known Drug Allergies 03/04/19 No Physical Exam: PE: Constitutional: Well developed, well nourished, no acute distress, non-toxic appearance HENT: Normocephalic, atraumatic Eyes: Conjunctiva normal, no discharge Neck: Normal range of motion, no tenderness, supple Cardiovascular: Left radial pulse +2, CR < 2 sec Lungs & Thorax: No respiratory distress, equal chest rise and fall Skin: Warm, dry, no erythema, healing abrasion to bottom of right great toe 2cm x 3cm, 1cm healing lesion to dorsal aspect at base of right 5th toe Extremities: Healing abrasions noted to right foot as above, left dorsal hand with swelling and tenderness to 4/5th metacarpals Neurologic: Alert and oriented X 3, no focal deficits noted Psychologic: Affect normal, judgment normal Current Patient Data: Vital Signs: Vital Signs Date Time Temp Pulse Resp B/P (MAP) Pulse Ox O2 Delivery O2 Flow Rate FiO2 09/03/19 13:40 97.9 77 20 142/56 (84) 97 Room Air EKG: EKG: [] Radiology/Procedures: Radiology/Procedures: PROCEDURE: HAND LEFT 3V 3 views left hand dated 09/03/2019. Comparison made to 03/04/2019. CLINICAL INDICATION: Pain after injury. FINDINGS: 3 views of left hand show an oblique fracture through the proximal one third shaft of the fourth metacarpal. This is in the same region as the prior exam and there is some persistent radiolucency through the shaft. There is some cortical thickening and periosteal thickening suggestive of some healing. IMPRESSION: 1. There is a fracture of the proximal fourth metacarpal shaft which was present on the 03/04/2019 exam. There is a persistent radiolucent line which could be related to incomplete healing, although refracture of a previously healed fracture is also possible. Correlate clinically. Electronically signed by: Dagoberto Shipman MD (09/03/2019 2:09 PM) [id number] Course & Med Decision Making: Course & Med Decision Making Pertinent Imaging studies reviewed. (See chart for details) Patient presents with blunt trauma injury to left hand at site of former fracture site. Patient reports she was supposed to get surgery but could not afford it and therefore allowed it to try to heal. Patient also complaining of pain to dorsum of right big toe at site of abrasion after patient had been 4 wheeling and drinking. Patient unaware of how injury occurred. There is possibility it may be secondary to a burn versus abrasion. No active signs of infection appreciated. Wound therefore cleaned and dressed with antibiotic ointment. X-ray obtained of left hand with findings of either nonhealing fracture site or reinjury along same fracture line in comparison to prior imaging. Splint applied. Patient stable for discharge with outpatient follow-up with PCP/orthopedics. Orthopedic referral provided. Discussed findings and plan with patient, who acknowledges understanding and agreement. Cliff Disclaimer: Cliff Disclaimer: This electronic medical record was generated, in whole or in part, using a voice recognition dictation system. Splinting Splinting : Location: Left hand Hand-Made Type: orthoglass Splint: ulnar (short arm) Pre-Proc Neuro Vasc Exam: normal Post-Proc Neuro Vasc Exam: normal, unchanged from pre-exam Departure Departure: Impression: Primary Impression: Metacarpal bone fracture Qualified Codes: S62.345A - Nondisplaced fracture of base of fourth metacarpal bone, left hand, initial encounter for closed fracture Additional Impression: Abrasion, foot Qualified Codes: S90.811A - Abrasion, right foot, initial encounter Disposition: HOME/RESIDENCE PRIOR TO ADM Condition: STABLE Referrals: PCP,NO (PCP) ALEM OSORIO MD Patient Instructions: Abrasion, [id number], Hand Fracture, Metacarpals, [id number], Splint Care, [id number] Additional Instructions: Use over the counter Tylenol and/or Ibuprofen for pain or discomfort. May ICE area 20 min on then leave off for next 20 min. Do not soak your wound. You may shower. Clean wound daily with soap and water. Change dressing 2 times daily. Use over the counter antibiotic ointment with each dressing change. Justification of Admission: Justification of Admission: Justification of Admission Dx: N/A DAGOBERTO CALLAHAN DO Sep 03, 2019 14:31
[2019-09-03 14:35] VITALS: BP 136/63
== END 2019-09-03 14:36 | disposition home or self-care (01) ==
LOC: ER 13:36
DX: S62.345A Nondisplaced fracture of base of fourth metacarpal bone, left hand, initial encounter for closed fracture (principal); S90.811A Abrasion, right foot, initial encounter; R60.0 Localized edema; Z98.890 Other specified postprocedural states; Z79.899 Other long term (current) drug therapy; Y08.89XA Assault by other specified means, initial encounter; Y93.89 Activity, other specified; Y92.89 Other specified places as the place of occurrence of the external cause; Y99.8 Other external cause status
CPT/HCPCS: 29125; 73130; 99283; J1885

== ENCOUNTER 2020-01-12 19:28 | Emergency (ER) | payer SELFPAY ==
[~2020-01-12] VITALS: Ht 172.7 cm; Wt 68.7 kg
--- NOTE | 2020-01-12 20:13 | PHYS DOC ---
Past History Past Medical History: No Pertinent History (TONIO UNDERWOOD APRN) Additional Past Surgical Histo: achilles tendon (TONIO UNDERWOOD APRN) Smoking: Non-smoker Alcohol Use: Occasionally Drug Use: None (TONIO UNDERWOOD APRN) Adult General Chief Complaint Chief Complaint: VAGINAL BLEEDING [facility] HPI Patient is a 24-year-old female who presents with vaginal bleeding and . Patient reports she is proximate 9 weeks , and started this morning she noticed some spotting in her underwear and on the paper after going to the bathroom. States she has had this a couple times today, states she has had some lower abdominal cramping as well today. Does state she has been feeling nauseous and has had several episodes of vomiting today as well. States no fever, no cough, no diarrhea. States this is her first , she has seen [facility], had ultrasound proximally 3 weeks ago, which was normal with time, however has next appointment in approximately 2 weeks. States she has been feeling a little worse over the last few days. (TONIO UNDERWOOD APRN) Review of Systems Review of Systems Constitutional: Denies fever or chills [] Eyes: Denies change in visual acuity, redness, or eye pain [] HENT: Denies nasal congestion or sore throat [] Respiratory: Denies cough or shortness of breath [] Cardiovascular: No additional information not addressed in HPI [] GI: Denies abdominal pain, bloody stools or diarrhea reports nausea, vomiting. [] : Denies dysuria or hematuria does reports small little vaginal bleeding with spotting. [] Musculoskeletal: Denies back pain or joint pain [] Integument: Denies rash or skin lesions [] Neurologic: Denies headache, focal weakness or sensory changes [] Endocrine: Denies polyuria or polydipsia [] All other systems were reviewed and found to be within normal limits, except as documented in this note. (TONIO UNDERWOOD APRN) Allergies Allergies Allergies Coded Allergies Type Severity Reaction Last Updated Verified No Known Drug Allergies 03/04/19 No (TONIO UNDERWOOD APRN) Physical Exam Physical Exam Constitutional: Well developed, well nourished, no acute distress, non-toxic appearance. [] HENT: Normocephalic, atraumatic, oropharynx moist, no oral exudates, nose normal. [] Eyes: PERRLA, EOMI, conjunctiva normal, no discharge. [] Neck: Normal range of motion, no tenderness, supple, no stridor. [] Cardiovascular:Heart rate regular rhythm, no murmur [] Lungs & Thorax: Bilateral breath sounds clear to auscultation [] Abdomen: Bowel sounds normal, soft, no tenderness, no masses, no pulsatile masses. [] Skin: Warm, dry, no erythema, no rash. [] Back: No tenderness, no CVA tenderness. [] Extremities: No tenderness, no cyanosis, no clubbing, ROM intact, no edema. [] Neurologic: Alert and oriented X 3, normal motor function, normal sensory function, no focal deficits noted. [] Psychologic: Affect normal, judgement normal, mood normal. [] (TONIO UNDERWOOD APRN) Current Patient Data Lab Results Laboratory Tests Test 01/12/20 20:01 POC Urine HCG, Qualitative hcg positive (Negative) (TONIO UNDERWOOD APRN) EKG EKG [] (TONIO UNDERWOOD APRN) Radiology/Procedures Radiology/Procedures PROCEDURE: OB <14 WKS W/TV Examination: Obstetric ultrasound first trimester HISTORY: History of abdominal pain, , vaginal bleeding COMPARISON: None available. FINDINGS: The uterus measures 11.7 x 7.3 x 6.2 cm. Intrauterine gestational sac identified. Single living intrauterine identified with crown-rump length measuring 2.8 cm corresponding to 9 weeks and 6 days with estimated date of delivery by ultrasound 08/10/2020. heart rate is 155 bpm. The right ovary measures 3.4 x 3.8 x 1.3 cm. The left ovary measures 3.5 x 1.5 x 1.1 cm. Small cystic structure measuring 1.4 cm the left ovary. In the right ovary there is a 1.7 cm solid echogenicity. Blood flow identified in the the right and left ovaries. IMPRESSION: 1. Single living intrauterine with 155 bpm. Gestational age corresponds to 9 weeks and 6 days. 2. A 1.7 cm solid echogenicity identified in the right ovary, uncertain etiology, could be collapsed follicle. Electronically signed by: Chao Tristan MD (01/12/2020 9:01 PM) [id number] DICTATED AND SIGNED BY: CHAO TRISTAN MD DATE: 01/12/202100 [] (TONIO UNDERWOOD APRN) Heart Score Risk Factors: Risk Factors: DM, Current or recent (<one month) smoker, HTN, HLP, family history of CAD, obesity. Risk Scores: Risk Factors: DM, Current or recent (<one month) smoker, HTN, HLP, family history of CAD, obesity. (TONIO UNDERWOOD APRN) Course & Med Decision Making Course & Med Decision Making Pertinent Labs and Imaging studies reviewed. (See chart for details) []Following zofran, patient reports she is feeling much better, is drinking PO fluids without nausea. States she no longer has cramping and nausea. With unremarkable ultrasound findings with fetus, and no anemia, believe safe for discharge. Will provide Rx for Diclegis for nausea. Recommend Follow up with OBGYN as she has scheduled already. Patient with no further questions or concerns at this time. (TONIO UNDERWOOD APRN) Dragon Disclaimer Dragon Disclaimer This electronic medical record was generated, in whole or in part, using a voice recognition dictation system. (TONIO UNDERWOOD APRN) Departure Departure: Impression: Primary Impression: Hyperemesis arising during Additional Impression: Vaginal bleeding affecting early Disposition: 01 DC HOME SELF CARE/HOMELESS Condition: GOOD Referrals: PCP,PAUL (PCP) Patient Instructions: Diet - Hyperemesis Gravidarum, Hyperemesis Gravidarum Additional Instructions: As we discussed make sure you are staying hydrated. You may take the nausea medication as needed for nausea. Continue to take your vitamins. Your blood type today is A POSITIVE. We are providing a copy of your ultrasound you may bring to your OBGYN on your next follow up. Scripts Doxylamine/Pyridoxine Hcl (ELLIS CHERRY 10-10 MG TABLET) 1 Each Tablet. 2 TAB PO QHS for Nausea & Vomiting for 24 Days, #48 TAB 0 Refills Prov: TONIO UNDERWOOD APRN 01/12/20 Attending Signature Attending Signature I have participated in the care of this patient and I have reviewed and agree with all pertinent clinical information above including history, exam, and recommendations. (ADILENE CALLAHAN DO) Problem Qualifiers TONIO UNDERWOOD APRN Jan 12, 2020 20:13 ADILENE CALLAHAN DO Jan 12, 2020 22:07
[2020-01-12] MEDS ORDERED: ONDANSETRON ODT 4 MG TAB.RAPDIS PO ONE (20:15)
--- NOTE | 2020-01-12 21:04 | RAD ---
Examination: Obstetric ultrasound first trimester HISTORY: History of abdominal pain, , vaginal bleeding COMPARISON: None available. FINDINGS: The uterus measures 11.7 x 7.3 x 6.2 cm. Intrauterine gestational sac identified. Single living intrauterine identified with crown-rump length measuring 2.8 cm corresponding to 9 weeks and 6 days with estimated date of delivery by ultrasound 08/10/2020. heart rate is 155 bpm. The right ovary measures 3.4 x 3.8 x 1.3 cm. The left ovary measures 3.5 x 1.5 x 1.1 cm. Small cystic structure measuring 1.4 cm the left ovary. In the right ovary there is a 1.7 cm solid echogenicity. Blood flow identified in the the right and left ovaries. IMPRESSION: 1. Single living intrauterine with 155 bpm. Gestational age corresponds to 9 weeks and 6 days. 2. A 1.7 cm solid echogenicity identified in the right ovary, uncertain etiology, could be collapsed follicle. Electronically signed by: Chao Tristan MD (01/12/2020 9:01 PM) [id number]
[2020-01-12 21:07] LABS: BILIRUBIN,URINE NEG (NEG); CLARITY,URINE CLEAR; COLOR,URINE COLORLESS; GLUCOSE,URINE NEG (NEG); NITRITE,URINE NEG (NEG); RBC,URINE RARE /HPF (0-2); UROBILINOGEN,URINE 0.2 mg/dL (0.2 mg/dL); WBC,URINE OCC /HPF (0-4)
[2020-01-12 21:08] LABS: BACTERIA,URINE 0 /HPF (0-FEW); SQUAMOUS EPITHELIAL CELL,UR FEW /LPF
[2020-01-12 21:09] LABS: BASO % 0 % (0-3); EOS # 0.1 x10^3/uL (0.0-0.7); EOS % 1 % (0-3); HEMATOCRIT 37.9 % (36.0-47.0); HEMOGLOBIN 12.3 g/dL (12.0-15.5); LYMPH # 2.7 x10^3/uL (1.0-4.8); LYMPH % 25 % (24-48); MEAN CORPUSCULAR HEMOGLOBIN 28 pg (25-35); MEAN CORPUSCULAR HGB CONC 32 g/dL (31-37); MEAN CORPUSCULAR VOLUME 85 fL (79-100); MONO # 1.1 x10^3/uL (0.0-1.1); MONO % 10 % (0-9); NEUT % 64 % (31-73); PLATELET COUNT 378 x10^3/uL (140-400); RED BLOOD COUNT 4.44 x10^6/uL (3.50-5.40); RED CELL DISTRIBUTION WIDTH 14.6 % (11.5-14.5)
[2020-01-12 21:19] LABS: CALCIUM 9.4 mg/dL (8.5-10.1); CREATININE 0.7 mg/dL (0.6-1.0); GFR 125.5; POTASSIUM 3.1 mmol/L (3.5-5.1)
[2020-01-12] MEDS ORDERED: DOXY1TAB3 PO (21:54)
[2020-01-12 22:12] VITALS: BP 142/66
== END 2020-01-12 22:12 | disposition home or self-care (01) ==
LOC: ER 19:28
DX: O21.0 Mild hyperemesis gravidarum (principal); O46.91 Antepartum hemorrhage, unspecified, first trimester; Z3A.09 9 weeks gestation of pregnancy
CPT/HCPCS: 36415; 76801; 76817; 80048; 81001; 81025; 84702; 85025; 86900; 86901; 99284; Q0162

== ENCOUNTER 2020-02-20 13:28 | Emergency (ER) | payer SELFPAY ==
[~2020-02-20] VITALS: Ht 172.7 cm; Wt 77.0 kg
[~2020-02-20 13:28] MED LIST changes: +DOXY1TAB3 PO
--- NOTE | 2020-02-20 14:03 | PHYS DOC ---
Past History Past Medical History: No Pertinent History (TONIO UNDERWOOD APRN) Past Surgical History: Other Additional Past Surgical Histo: LEFT KNEE, THYROID SURGERY (TONIO UNDERWOOD APRN) Smoking: Non-smoker Alcohol Use: None Drug Use: None (TONIO UNDERWOOD APRN) Adult General Chief Complaint Chief Complaint: VAGINAL BLEEDING [facility] HPI Patient is a 24-year-old female who presents with abdominal cramping for the past 3 days. Patient reports spotting since last night. Patient is approximately 15 weeks . Patient reports talking to her Y[facility] HAULER who started patient to follow-up in the ER due to continuing cramping and spotting. Patient also reports nausea which started today. Patient does report intermittent spotting throughout her , but with continued spotting and cramping she was more concerned today. Patient reports taking a vitamin. Patient denies any urinary symptoms or falls. (TONIO UNDERWOOD APRN) Review of Systems Review of Systems Constitutional: Denies fever or chills [patient reports feeling sweaty all day today] Eyes: Denies change in visual acuity, redness, or eye pain [] HENT: Denies nasal congestion or sore throat [] Respiratory: Denies cough or shortness of breath [] Cardiovascular: No additional information not addressed in HPI [] GI: Denies vomiting, bloody stools or diarrhea [patient reports abdominal cramping and nausea : Denies dysuria or hematuria,patient reports spotting that started this morn ing Musculoskeletal: Denies back pain or joint pain [] Integument: Denies rash or skin lesions [] Neurologic: Denies headache, focal weakness or sensory changes [] Endocrine: Denies polyuria or polydipsia [] All other systems were reviewed and found to be within normal limits, except as documented in this note. (TONIO UNDERWOOD APRN) Allergies Allergies Allergies Coded Allergies Type Severity Reaction Last Updated Verified No Known Drug Allergies 03/04/19 No (TONIO UNDERWOOD APRN) Physical Exam Physical Exam General: Appears well, non toxic, and comfortable Skin: Warm, diaphoretic, normal for ethnicity. HEENT: Atraumatic. PERRLA. Moist mucous membranes. Neck: Trachea midline. Normal ROM. Respiratory: Normal WOB. CTAB w/o w/r/r. No tachypnea. Cardiovascular: Regular rate and rhythm. Normal peripheral perfusion. No edema. Abdomen: Soft, tenderness with palpation to lower abdomen. no distension. Back: Normal ROM. Musculoskeletal: No swelling or deformity. Neuro: Alert and oriented x 4. MAEE. Psych: Normal affect and mood. (TONIO UNDERWOOD APRN) Current Patient Data Vital Signs Vital Signs Date Time Temp Pulse Resp B/P (MAP) Pulse Ox O2 Delivery O2 Flow Rate FiO2 02/20/20 13:41 97.0 86 18 138/83 (101) 98 Room Air (TONIO UNDERWOOD APRN) EKG EKG [] (TONIO UNDERWOOD APRN) Radiology/Procedures Radiology/Procedures [] (TONIO UNDERWOOD APRN) Heart Score Risk Factors: Risk Factors: DM, Current or recent (<one month) smoker, HTN, HLP, family history of CAD, obesity. Risk Scores: Risk Factors: DM, Current or recent (<one month) smoker, HTN, HLP, family history of CAD, obesity. (TONIO UNDERWOOD APRN) Course & Med Decision Making Course & Med Decision Making Pertinent Labs and Imaging studies reviewed. (See chart for details) [] Labs UA and ultrasound sound showed no acute concerning findings. Patient has nausea medication and prenatals at home that she is taking. Patient has follow- up with [facility] in 2 weeks. (TONIO UNDERWOOD APRN) Course & Med Decision Making I oversaw on the above date of service of this patient and discussed the care with the ASSEMBLY OPERATOR. I agree with the findings, plan of care, and disposition as documented. Patient hemodynamically stable, ambulatory, and nontoxic-appearing on discharge. Saw Liriano DO Attending ED Physician (SAW LIRIANO DO) Cliff Disclaimer Cliff Disclaimer This electronic medical record was generated, in whole or in part, using a voice recognition dictation system. (TONIO UNDERWOOD APRN) Departure Departure: Impression: Primary Impression: Vaginal bleeding before 22 weeks gestation Additional Impression: Malaise Disposition: 01 DC HOME SELF CARE/HOMELESS Condition: GOOD Referrals: PCP,PAUL (PCP) Patient Instructions: Vaginal Bleeding During , [id number] Additional Instructions: Keep taking your vitamins. Keep taking your nausea medication as pr escribed. Follow-up with your OB for your next appointment. Return to ER with any further concerns. Problem Qualifiers TONIO UNDERWOOD APRN Feb 20, 2020 14:03 SAW LIRIANO DO Feb 21, 2020 06:28
[2020-02-20] MEDS ORDERED: ONDANSETRON PF 4 MG/2 ML VIAL. IVP ONE (14:15)
[2020-02-20] MEDS ORDERED: IV NORMAL SALINE 1,000ML 1,000 ML IV ONE (14:15)
--- NOTE | 2020-02-20 14:54 | RAD ---
EXAM: Obstetrics sonogram. HISTORY: Vaginal spotting. TECHNIQUE: Sonographic imaging of a gravid uterus was performed. COMPARISON: 01/12/2020. FINDINGS: There is a single intrauterine fetus in variable presentation with a normal heart rate of 1 52 bpm. The anatomic fluid volume is grossly normal. The cervix is closed and measures 3.3 cm in samantha th. There is a posterior placenta without evidence of placenta previa. The biparietal diameter is 3.02 cm, corresponding with 15 weeks and 4 days. The head circumference is 11.31 cm, corresponding with 15 weeks and 4 days. The abdominal circumference is 8.34 cm, correspond ing with 14 weeks and 5 days. The femoral length is 1.45 cm, corresponding with 14 weeks and 2 days. The estimated gestational age patient combined ultrasound measurements is 15 weeks and 0 days. There is no acute sonographic finding. IMPRESSION: Single intrauterine fetus with normal heart rate and gestational age patient also measure ments of 15 weeks and 0 days. No acute sonographic finding. Electronically signed by: Michell Clarke MD (02/20/2020 2:52 PM) [id number]
[2020-02-20 14:59] LABS: BASO % 0 % (0-3); EOS # 0.1 x10^3/uL (0.0-0.7); EOS % 2 % (0-3); HEMATOCRIT 36.8 % (36.0-47.0); HEMOGLOBIN 11.9 g/dL (12.0-15.5); LYMPH # 1.9 x10^3/uL (1.0-4.8); LYMPH % 22 % (24-48); MEAN CORPUSCULAR HEMOGLOBIN 28 pg (25-35); MEAN CORPUSCULAR HGB CONC 32 g/dL (31-37); MEAN CORPUSCULAR VOLUME 87 fL (79-100); MONO # 0.6 x10^3/uL (0.0-1.1); MONO % 7 % (0-9); NEUT # 6.2 x10^3uL (1.8-7.7); NEUT % 70 % (31-73); PLATELET COUNT 345 x10^3/uL (140-400); RED BLOOD COUNT 4.24 x10^6/uL (3.50-5.40); RED CELL DISTRIBUTION WIDTH 14.2 % (11.5-14.5)
[2020-02-20 15:06] LABS: CALCIUM 9.4 mg/dL (8.5-10.1); CREATININE 0.7 mg/dL (0.6-1.0); GFR 125.5; POTASSIUM 3.7 mmol/L (3.5-5.1)
[2020-02-20 15:13] LABS: ALBUMIN 3.8 g/dL (3.4-5.0); TOTAL BILIRUBIN 0.1 mg/dL (0.2-1.0); TOTAL PROTEIN 7.5 g/dL (6.4-8.2)
[2020-02-20 15:17] LABS: BACTERIA,URINE 0 /HPF (0-FEW); BILIRUBIN,URINE NEG (NEG); CLARITY,URINE CLEAR; COLOR,URINE YELLOW; GLUCOSE,URINE NEG (NEG); NITRITE,URINE NEG (NEG); RBC,URINE 0 /HPF (0-2); SQUAMOUS EPITHELIAL CELL,UR MANY /LPF; UROBILINOGEN,URINE 0.2 mg/dL (0.2 mg/dL); WBC,URINE 0 /HPF (0-4)
[2020-02-20 15:47] VITALS: BP 130/71
== END 2020-02-20 15:55 | disposition home or self-care (01) ==
LOC: ER 13:28
DX: O46.92 Antepartum hemorrhage, unspecified, second trimester (principal); R53.81 Other malaise; Z3A.15 15 weeks gestation of pregnancy
CPT/HCPCS: 36415; 76815; 80053; 81001; 84702; 85025; 96361; 96374; 99284; J2405; J7030

== ENCOUNTER 2020-05-04 09:07 | Emergency (ER) | payer OTHER ==
[~2020-05-04] VITALS: Ht 172.7 cm; Wt 77.0 kg
[2020-05-04 09:17] VITALS: BP 130/80
[2020-05-04] MEDS ORDERED: CYCLOBENZAPRINE 10 MG TABLET. PO ONE (09:30)
[2020-05-04] MEDS ORDERED: ACETAMINOPHEN 500 MG TABLET PO ONE (09:30)
[2020-05-04] MEDS ORDERED: LIDOCAINE (700MG/PATCH) PATCH. TD ONE (09:32)
--- NOTE | 2020-05-04 09:42 | PHYS DOC ---
Past History Past Medical History: No Pertinent History Past Surgical History: Other Additional Past Surgical Histo: LEFT KNEE, THYROID SURGERY Smoking: Non-smoker Alcohol Use: None Drug Use: None Adult General Chief Complaint Chief Complaint: BACK PAIN - NO INJURY [facility] Patient is a patient is a 25-year-old female who presents to the emergency room complaining of back pain and posterior leg pain that started 2 days ago. Patient states she last saw her physician on Thursday and at that time she was having diarrhea. Her physician recommended that if it got any worse that she should go to the emergency room at as that is where she is going to deliver. She states that the diarrhea has resolved. 2 days ago she started having back pain that feels achy in nature but she states is severe. She woke up this morning and states that the back of her legs are starting to hurt. She denies any associated symptoms. She does not have any URI symptoms, sore throat, cough, fever, chills, sweats, shortness of breath, nausea, vomiting, diarrhea, vaginal discharge, vaginal bleeding, urinary symptoms. She has not had any kind of trauma. She states she took some Tylenol last night which did not resolve her symptoms. Pain is worse with movement. It is constant and does not feel colicky in nature. Review of Systems Review of Systems Complete ROS is negative unless otherwise documented in HPI Current Medications Current Medications Current Medications Medications (Trade) Dose Ordered Sig/[facility] Start Time Stop Time Status Last Admin Dose Admin Acetaminophen (Tylenol) 1,000 mg 1X ONCE 05/04/20 09:30 05/04/20 09:33 DC Cyclobenzaprine HCl (Flexeril) 10 mg 1X ONCE 05/04/20 09:30 05/04/20 09:33 DC Lidocaine (Lidoderm) 1 patch 1X ONCE 05/04/20 09:32 05/04/20 09:33 DC Miscellaneous (Lidoderm Patch Removal) 1 ea QHS 05/04/20 21:00 Allergies Allergies Allergies Coded Allergies Type Severity Reaction Last Updated Verified No Known Drug Allergies 03/04/19 No Physical Exam Physical Exam General: Awake, alert, NAD. Well Nourished, well hydrated. Cooperative HEENT: Atraumatic, EOMI, PERRL, airway patent, moist oral mucosa Neck: Supple, trachea midline Respiratory: CTA bilaterally, normal effort, no wheezing/crackles CV: RRR, no murmur, cap refill <2 GI: Soft, nondistended, nontender, no masses MSK: No obvious deformities, lower back tenderness Skin: Warm, dry, intact Neuro: A&O x3, speech NL, sensory and motor grossly intact, no focal deficits Psych: Normal affect, normal mood, not suicidal or homicidal Current Patient Data Vital Signs Vital Signs Date Time Temp Pulse Resp B/P (MAP) Pulse Ox O2 Delivery O2 Flow Rate FiO2 05/04/20 09:17 97.7 89 17 130/80 (97) 100 EKG EKG [] Radiology/Procedures Radiology/Procedures [] Heart Score Risk Factors: Risk Factors: DM, Current or recent (<one month) smoker, HTN, HLP, family history of CAD, obesity. Risk Scores: Risk Factors: DM, Current or recent (<one month) smoker, HTN, HLP, family history of CAD, obesity. Course & Med Decision Making Course & Med Decision Making Pertinent Labs and Imaging studies reviewed. (See chart for details) Patient is a 25-year-old female presents to the emergency room complaining of back pain and pain into her bilateral legs that is achy in nature. Patient is overall well-appearing. Her pain is constant and not intermittent making contractions highly unlikely. Patient does not have any vaginal discharge or bleeding that would suggest complications with the . Patient continues to feel the baby move. Doppler was done and baby has a good heart rate. Patient does not have any other symptoms of leg swelling, infection, shortness of breath that would suggest other pathology. It is possible that patient is starting to come down with viral syndrome and is getting myalgias. Will order a Covid swab to ensure that patient is not starting to get Covid. We will not get the results of this today. Patient is not hypoxic and does not have shortness of breath. At this time she does not need to be admitted. Patient was given Tylenol, lidocaine patches, Flexeril for her back pain as these are safe in . UA was done to rule out any kind of infection during pr egnancy. Patient has a few white blood cells and bacteria. She will be treated for UTI. Patient feeling significantly better with symptomatic care. Patient's test results and vitals while in the ED were fully reviewed and discussed with the patient. Patient is stable and at this time does not need admission to the hospital. We have discussed strict return precautions and the importance of following up with their Primary Care Physician. Patient stated understanding and was given an opportunity to ask any questions. Patient is in agreement with plan. Cliff Disclaimer Cliff Disclaimer This electronic medical record was generated, in whole or in part, using a voice recognition dictation system. Departure Departure: Impression: Primary Impression: Back pain affecting Additional Impression: UTI (urinary tract infection) Disposition: 01 DC HOME SELF CARE/HOMELESS Condition: STABLE Referrals: NON,STAFF (PCP) Patient Instructions: Back Pain in Scripts Lidocaine (Lidocaine PATCH ) 1 Each Adh..patch 1 EACH TP DAILY for FOR LOCAL PAIN for 5 Days, #5 PATCH REMOVE AFTER 12 HOURS Prov: PHUONG STEWART MD 05/04/20 Cyclobenzaprine Hcl (CYCLOBENZAPRINE HCL) 10 Mg Tablet 1 TAB PO TID PRN for PAIN, #12 TAB Prov: PHUONG STEWART MD 05/04/20 Nitrofurantoin Monohyd/M-Cryst (MACROBID 100 MG CAPSULE) 100 Mg Capsule 1 CAP PO BID for UTI for 5 Days, #10 CAP 0 Refills Prov: PHUONG STEWART MD 05/04/20 Problem Qualifiers PHUONG STEWART MD May 04, 2020 09:42
[2020-05-04 10:12] LABS: BACTERIA,URINE FEW /HPF (0-FEW); BILIRUBIN,URINE NEG (NEG); CLARITY,URINE HAZY; COLOR,URINE YELLOW; GLUCOSE,URINE NEG (NEG); NITRITE,URINE NEG (NEG); RBC,URINE 0 /HPF (0-2); SQUAMOUS EPITHELIAL CELL,UR MANY /LPF; UROBILINOGEN,URINE 0.2 mg/dL (0.2 mg/dL)
[2020-05-04 10:13] LABS: AMORPHOUS SEDIMENT,UR PRESENT /HPF
[2020-05-04] MEDS ORDERED: NITR100C62 PO (10:47)
[2020-05-04] MEDS ORDERED: CYCL-331 PO (10:47)
[2020-05-04] MEDS ORDERED: LIDO700A21 TP (10:47)
[2020-05-04] MEDS ORDERED: PATCH REMOVAL. MC SCH (21:00)
--- NOTE | 2020-05-07 11:33 | NUR ---
Infection Prevention: Call to pt's listed number, . Incorrect number, no additional information. Addendum: 05/07/20 at 1140 by RUFUS NORTH RN Unable to obtain correct number to reach pt, letter sent to pt's listed address, requesting return call. No results included.
== END 2020-05-04 10:54 | disposition home or self-care (01) ==
LOC: ER 09:15
DX: O23.42 Unspecified infection of urinary tract in pregnancy, second trimester (principal); M54.5 Low back pain; M79.605 Pain in left leg; M79.604 Pain in right leg; Z20.822 Contact with and (suspected) exposure to COVID-19; Z3A.25 25 weeks gestation of pregnancy
CPT/HCPCS: 81001; 87086; 99284; C9803; U0003; 87077

== ENCOUNTER 2020-05-15 11:17 | Emergency (ER) | payer OTHER ==
[~2020-05-15] VITALS: Ht 172.7 cm; Wt 77.0 kg
[~2020-05-15 11:17] MED LIST changes: +CYCL-331 PO; +LIDO700A21 TP; +NITR100C62 PO
[2020-05-15 11:28] VITALS: BP 156/94
--- NOTE | 2020-05-15 12:14 | PHYS DOC ---
Past History Past Medical History: No Pertinent History Past Surgical History: Other Additional Past Surgical Histo: LEFT KNEE, THYROID SURGERY Smoking: Non-smoker Alcohol Use: None Drug Use: None General Adult EDM: Chief Complaint: BACK PAIN - NO INJURY HPI: HPI: Patient is a 25-year-old female who presents with back pain that started last night. Patient states that she was laying in bed when the middle of her upper back started hurting. Patient has a history of scoliosis and is 5 months . Seen here last week for the same complaint and given Tylenol and lidocaine patches at that time. Patient reports the pain is worse with deep breathing and with laying down. Denies retention or incontinence of bowel or bladder. Patient describes pain as a sharp. Denies radiation. Patient states that she used a lidocaine patch and Tylenol with little relief. Denies injury Review of Systems: Review of Systems: Constitutional: Denies fever or chills Eyes: Denies change in visual acuity HENT: Denies nasal congestion or sore throat Respiratory: Denies cough or shortness of breath Cardiovascular: Denies chest pain or edema GI: Denies abdominal pain, nausea, vomiting, bloody stools or diarrhea : Denies dysuria Musculoskeletal: Reports middle back pain Integument: Denies rash Neurologic: Denies headache, focal weakness or sensory changes Endocrine: Denies polyuria or polydipsia Lymphatic: Denies swollen glands Psychiatric: Denies depression or anxiety Allergies: Allergies: Allergies Coded Allergies Type Severity Reaction Last Updated Verified No Known Drug Allergies 03/04/19 No Physical Exam: PE: Constitutional: Well developed, well nourished, no acute distress, non-toxic appearance. [] HENT: Normocephalic, atraumatic, bilateral external ears normal, oropharynx moist, no oral exudates, nose normal. [] Eyes: PERRLA, EOMI, conjunctiva normal, no discharge. [] Neck: Normal range of motion, no tenderness, supple, no stridor. [] Cardiovascular:Heart rate regular rhythm, no murmur [] Lungs & Thorax: Bilateral breath sounds clear to auscultation [] Abdomen: Bowel sounds normal, soft, no tenderness, no masses, no pulsatile masses. [] Skin: Warm, dry, no erythema, no rash. [] Back: Midline thoracic, tenderness, no CVA tenderness. [] Extremities: No tenderness, no cyanosis, no clubbing, ROM intact, no edema. [] Neurologic: Alert and oriented X 3, normal motor function, normal sensory function, no focal deficits noted. [] Psychologic: Affect normal, judgement normal, mood normal. [] Current Patient Data: Vital Signs: Vital Signs Date Time Temp Pulse Resp B/P (MAP) Pulse Ox O2 Delivery O2 Flow Rate FiO2 05/15/20 11:28 98.6 18 156/94 (114) Room Air EKG: EKG: [] Radiology/Procedures: Radiology/Procedures: [] Heart Score: C/O Chest Pain: No Risk Factors: Risk Factors: DM, Current or recent (<one month) smoker, HTN, HLP, family history of CAD, obesity. Risk Scores: Score 0 - 3: 2.5% MACE over next 6 weeks - Discharge Home Score 4 - 6: 20.3% MACE over next 6 weeks - Admit for Clinical Observation Score 7 - 10: 72.7% MACE over next 6 weeks - Early Invasive Strategies Course & Med Decision Making: Course & Med Decision Making Pertinent Labs and Imaging studies reviewed. (See chart for details) [] Patient is complaining of midline thoracic back pain. Patient was seen here last week for the same complaint. Patient has a history of scoliosis and is 5 months . Patient was given Tylenol and lidocaine patches at that time for pain relief. Patient is given Tylenol in the emergency room. States that she called her OB has not had a return phone call. Discussed stretching, belly bands to help support her back. Patient states that she understands and she is going to follow-up with OB. Patient can continue taking Tylenol at home for discomfort. Patient is hemodynamically stable and able to ambulate on her own. [email or web address] Disclaimer: [employer] Disclaimer: This electronic medical record was generated, in whole or in part, using a voice recognition dictation system. Departure Departure: Impression: Primary Impression: Back pain affecting in second trimester Disposition: 01 DC HOME SELF CARE/HOMELESS Condition: STABLE Referrals: NON,STAFF (PCP) Patient Instructions: Back Pain in Additional Instructions: You were seen in the emergency room today for back pain. You were given Tylenol in the emergency room for discomfort. You can continue to take Tylenol at home for pain and follow-up with your OB for further management. Return to the emergency room with worsening symptoms or concerns. EMERGENCY DEPARTMENT GENERAL DISCHARGE INSTRUCTIONS Thank you for coming to [facility] (ED) today and trusting us with you care. We trust that you had a positivie experience in our Emergency Department. If you wish to speak to the department management, you may call the director at [phone]. YOUR FOLLOW UP INSTRUCTIONS ARE FOLLOWS: 1. Do you have a private Doctor? If you do not have a private doctor, please ask for a resource list of physicians or clinics that may be able to assist you with follow up care. 2. The Emergency Physician has interpreted your x-rays. The X-Ray specialist will also review them. If there is a change in the findings, you will be notified in 48 hours when at all possible. 3. A lab test or culture has been done, your results will be reviewed and you will be notified if you need a change in treatment. ADDITIONAL INSTRUCTIONS AND INFORMATION: 1. Your care today has been supervised by a physician who is specially trained in emergency care. Many problems require more than one evaluation for a complete diagnosis and treatment. We recommend that you schedule your follow up appointment as recommended to ensure complete treatment of you illness or injury. If you are unable to obtain follow up care and continue to have a problem, or if your condition worsens, we recommend that you return to the ED. 2. We are not able to safely determine your condition over the phone nor are we able to give sound medical advice over the phone. For these safety reasons, if you call for medical advice we will ask you to come to the ED for further evaluation. 3. If you have any questions regarding these discharge instructions please call the ED at [phone]. SAFETY INFORMATION: In the interest of safety, wellness, and injury prevention; we encourage you to wear your sealbelt, if you smoke; quite smoking, and we encourage family to use a protective helmet for bicycling and other sporting events that present an increased risk for head injury. IF YOUR SYMPTOMS WORSEN OR NEW SYMPTOMS DEVELOP, OR YOU HAVE CONCERNS ABOUT YOUR CONDITION; OR IF YOUR CONDITION WORSENS WHILE YOU ARE WAITING FOR YOUR FOLLOW UP APPOINTMENT; EITHER CONTACT YOUR PRIMARY CARE DOCTOR, THE PHYSICIAN WHOSE NAME AND NUMBER YOU WERE GIVEN, OR RETURN TO THE ED IMMEDIATELY. DARVIN MAHER APRN May 15, 2020 12:14
[2020-05-15] MEDS ORDERED: ORPHENADRINE CITRATE 60 MG/2 ML VIAL. IM ONE (12:15)
[2020-05-15] MEDS ORDERED: DEXAMETHASONE 4 MG TABLET PO ONE (12:15)
[2020-05-15] MEDS ORDERED: ACETAMINOPHEN 325 MG TABLET PO ONE (12:30)
== END 2020-05-15 13:21 | disposition home or self-care (01) ==
LOC: ER 11:17
DX: O26.892 Other specified pregnancy related conditions, second trimester (principal); M54.6 Pain in thoracic spine; Z3A.24 24 weeks gestation of pregnancy
CPT/HCPCS: 99282

== ENCOUNTER 2020-10-03 19:53 | Emergency (ER) | payer OTHER ==
[~2020-10-03] VITALS: Ht 172.7 cm; Wt 60.7 kg
[2020-10-03 20:30] VITALS: BP 144/81
--- NOTE | 2020-10-03 20:40 | PHYS DOC ---
Past History Past Medical History: No Pertinent History Past Surgical History: Other Additional Past Surgical Histo: LEFT KNEE, THYROID SURGERY Smoking: Non-smoker Alcohol Use: None Drug Use: None Adult General Chief Complaint Chief Complaint: HEADACHE HPI HPI Patient is a 25-year-old female who presents with a chief complaint of cough, congestion, chills and sweats, and a whole head headache over the past couple of days. States he only thing she took with some Motrin 2 PM. States she has had some chills and sweats but had not taken her temperature. Denies any recent traumas, travels, known ill contacts, chest pain, shortness of breath, abdominal pain, nausea, vomiting, diarrhea. Review of Systems Review of Systems Review of systems otherwise unremarkable except noted in HPI Allergies Allergies Allergies Coded Allergies Type Severity Reaction Last Updated Verified No Known Drug Allergies 03/04/19 No Physical Exam Physical Exam Constitutional: Well developed, well nourished, no acute distress, non-toxic appearance. [] HENT: Normocephalic, atraumatic, tympanic membranes normal, oropharynx moist, no oral exudates, nose normal. [] Eyes: conjunctiva normal, no discharge. [] Neck: Normal range of motion, no tenderness, supple, no stridor. [] Cardiovascular:Heart rate regular rhythm, no murmur [] Lungs & Thorax: Bilateral breath sounds with mild rhonchi Abdomen: Bowel sounds normal, soft, no tenderness, no masses, no pulsatile masses. [] Skin: Warm, dry, no erythema, no rash. [] Extremities: No tenderness, no cyanosis, no clubbing, ROM intact, no edema. [] Neurologic: Alert and oriented X 3, n no focal deficits noted. [] Psychologic: Affect normal, judgement normal, mood normal. [] EKG EKG [] Radiology/Procedures Radiology/Procedures [] Heart Score C/O Chest Pain: No Risk Factors: Risk Factors: DM, Current or recent (<one month) smoker, HTN, HLP, family history of CAD, obesity. Risk Scores: Risk Factors: DM, Current or recent (<one month) smoker, HTN, HLP, family history of CAD, obesity. Course & Med Decision Making Course & Med Decision Making Patient is 25-year-old female presents with Covid/flu/cold symptoms for couple days Vital signs not concerning . Physical exam noted above. Patient given Tylenol, ibuprofen and Benadryl as well as cough syrup. Patient requesting Covid swab. Declined chest x-ray. Asked to be discharged home after her Covid swab. Gave Covid education and instructions. Advised to follow-up in the morning with primary care. Gave return precautions to the ED. Patient grateful, verbalized understanding and agreed with plan of discharge. Dragon Disclaimer Dragon Disclaimer This electronic medical record was generated, in whole or in part, using a voice recognition dictation system. Departure Departure: Impression: Primary Impression: Viral syndrome Disposition: HOME / SELF CARE / HOMELESS Condition: STABLE Referrals: PCP,PAUL (PCP) THERON INGRAM Patient Instructions: Viral Syndrome Additional Instructions: Thank you for coming into the emergency department tonight and allowing us to take care of you. Please read all the attached information very carefully to go over things we discussed. You can continue Tylenol, ibuprofen, and Benadryl as well as cough syrup at home as we discussed. Please call your primary care physician in the morning to update on your ED visit and set up a follow-up. Please come back to the ED with new or concerning symptoms. You have been tested for COVID-19. It is an infection caused by a new type of coronavirus. COVID-19 will cause cold-like or mild flu symptoms in most. It can cause more severe symptoms like problems breathing in some. There is no treatment for COVID-19. The body will clear the infection over time. Self-care will help to ease discomfort. Steps to Take: Self-Care Rest as needed. Healthy habits may help you feel better. Steps include: Choose healthy foods including fruits and vegetables. Drink water throughout the day. Get plenty of sleep each night. If you smoke, try to quit. It may ease breathing. Avoid alcohol. Keep Others Healthy The virus can spread to others. Droplets are released every time you sneeze or cough. The droplets can get into the mouth, nose, or eyes of people near you and lead to infection. To lower the chances of spreading COVID-19 to others: Stay at home until your doctor has said it is safe to leave. If you tested positive this will mean staying isolated until both of the following are true: At least 7 days have passed since the start of illness. You are free of fever for at least 72 hours without the use of medicine. During this time: - Avoid public areas, events, or transportation. Do not return to work or school until your doctor has said it is safe to do so. - Call ahead if you need to go to a medical center. Let them know you may have COVID-19. It will help them guide you where to go. They may also ask you to wear a facemask when you come to the office. - If you call for emergency medical services, let them know you may have COVID- 19. While at home: - Try to avoid close contact with others. Stay about 6 feet away. - If possible, spend most of your time in a separate room from others. - Use a face mask if you will be in close contact with others such as sharing a room or vehicle. - Have someone wipe down common surfaces in the home. Use household forestry extension specialist every day on areas like doorknobs, counters, or sinks. - Cough or sneeze into a tissue. Throw the tissue away right after use. If a tissue is not available, cough or sneeze into your elbow. - Wash your hands often. Wash them after sneezing or coughing. Use soap and w ater and wash for at least 20 seconds. Alcohol based hand cleaner industrial can be used if soap and water is not available. - Do not prepare food for others. Avoid sharing personal items like forks, spoons, or toothbrushes. - Avoid close contact with pets while you are sick. There is no evidence of the virus passing to pets. This is a safety step until more is known about this virus. Isolation can be frustrating. Social interaction can help. Keep in touch with friends and family through phone and tech options. You can still interact with others in your home, just keep a safe distance of about 6 feet. Follow-up: Your doctors office will check in with you to see if there are any changes in your health. You may be asked to keep track of symptoms to share with them. They will also let you know when you are clear to be in public again. Problems to Look Out For: Contact your doctor if your recovery is not going as you expect. Get emergency care if you have problems such as: - Trouble breathing - Nonstop chest pain or pressure - Changes in awareness, confusion, or problems waking - Lips or face have bluish color - Worsening of symptoms If you think you have an emergency, call for emergency medical services right away. [facility] Oct 03, 2020 20:40
[2020-10-03] MEDS ORDERED: ACETAMINOPHEN 500 MG TABLET PO ONE (20:45)
[2020-10-03] MEDS ORDERED: diphenhydrAMINE HCL 25 MG CAPSULE PO ONE (20:45)
[2020-10-03] MEDS ORDERED: guaiFENesin DM 200MG/20MG 10 ML SYRUP PO ONE (21:30)
[2020-10-03] MEDS ORDERED: IBUPROFEN 400 MG TABLET. PO ONE (21:30)
--- NOTE | 2020-10-05 10:28 | NUR ---
IP: Attempted to contact pt concerning covid results. No answer, no voicemail.
== END 2020-10-03 21:25 | disposition home or self-care (01) ==
LOC: ER 19:53
DX: U07.1 COVID-19 (principal); B34.9 Viral infection, unspecified
CPT/HCPCS: 99284; U0005; U0003

== ENCOUNTER 2021-07-09 18:47 | Emergency (ER) | payer OTHER ==
[~2021-07-09] VITALS: Ht 175.3 cm; Wt 60.7 kg
[~2021-07-09 18:47] MED LIST changes: -CYCL-331 PO; +CYCL10TA19 PO
[2021-07-09 19:10] VITALS: BP 140/83
--- NOTE | 2021-07-09 19:21 | PHYS DOC ---
Past History Past Medical History: No Pertinent History Past Surgical History: No Surgical History Additional Past Surgical Histo: left ankle Smoking: Non-smoker Alcohol Use: None Drug Use: None Adult General Chief Complaint Chief Complaint: ABDOMINAL PAIN HPI HPI Patient is a 26-year-old female who presents with a chief complaint of centralized abdominal pain, sharp in nature, 8 out of 10 with no radiation, associated with nonbilious nonbloody vomiting over the course of the last day. Denies any recent travels, traumas, illness, fevers, chest pain, shortness of breath, dysuria, hematuria, blood in the stool or diarrhea. Denies any vaginal bleeding, discharge, pain or history of STIs or concern thereof. Denies any alcohol or drug use. Review of Systems Review of Systems Review of systems otherwise unremarkable except noted in HPI Allergies Allergies Allergies Coded Allergies Type Severity Reaction Last Updated Verified No Known Drug Allergies 03/04/19 No Physical Exam Physical Exam Constitutional: Well developed, well nourished, no acute distress, non-toxic appearance. [] HENT: Normocephalic, atraumatic, bilateral external ears normal, oropharynx moist, no oral exudates, nose normal. [] Eyes: conjunctiva normal, no discharge. [] Neck: Normal range of motion, no tenderness, supple, no stridor. [] Cardiovascular:Heart rate regular rhythm, no murmur [] Lungs & Thorax: Bilateral breath sounds clear to auscultation [] Abdomen: soft, generalized tenderness with no rebound or guarding,, no masses, no pulsatile masses. [] Skin: Warm, dry, no erythema, no rash. [] Back: no CVA tenderness. [] Extremities: No tenderness, no cyanosis, no clubbing, ROM intact, no edema. [] Neurologic: Alert and oriented X 3, normal motor function, normal sensory function, able to sit, stand and walk without issue, no focal deficits noted. [] Psychologic: Affect normal, judgement normal, mood normal. [] Current Patient Data Vital Signs Vital Signs Date Time Temp Pulse Resp B/P (MAP) Pulse Ox O2 Delivery O2 Flow Rate FiO2 07/09/21 19:10 86 22 140/83 (102) 100 Room Air EKG EKG [] Radiology/Procedures Radiology/Procedures [] Heart Score C/O Chest Pain: No Risk Factors: Risk Factors: DM, Current or recent (<one month) smoker, HTN, HLP, family history of CAD, obesity. Risk Scores: Risk Factors: DM, Current or recent (<one month) smoker, HTN, HLP, family history of CAD, obesity. Course & Med Decision Making Course & Med Decision Making Patient is a 26-year-old female presents with abdominal pain, nausea and vomiting Vital signs nonconcerning. Physical exam noted above. Placed on the monitor with IV access established and given nausea and pain medicine Chest x-ray nonconcerning. CT not concerning. Urinalysis nonconcerning. negative. Laboratory analysis only notable for leukocytosis. Discussed all findings with patient and offered further work-up in the emergency department, the patient stated she was feeling much better and was ready to be discharged home. Given work note for tomorrow patient's request. Advised to follow-up in the morning with primary care physician. Gave return precautions to the ED. Patient grateful, verbalized understanding and agreed with plan of discharge [] Dragon Disclaimer Dragon Disclaimer This electronic medical record was generated, in whole or in part, using a voice recognition dictation system. Departure Departure: Impression: Primary Impression: Abdominal pain Disposition: HOME / SELF CARE / HOMELESS Condition: STABLE Referrals: PCP,PAUL (PCP) THERON INGRAM Patient Instructions: Abdominal Pain Additional Instructions: Thank you for coming into the emergency department tonight and allowing us to take care of you. Please read the attached information carefully to go over things we discussed. You can continue Tylenol, ibuprofen, Benadryl at home as needed. Please come back with new or concerning symptoms as we discussed. Please call your primary care physician in the morning to update on your ED visit and set up a follow-up as soon as you can. KRISTYN PETERSON MD July 09, 2021 19:21
[2021-07-09] MEDS: METOCLOPRAMIDE HCL 10 MG/2 ML VIAL. IVP ONE (19:35)
[2021-07-09] MEDS: MORPHINE SULFATE 10 MG/ML SYRINGE. SQ ONE (19:36)
[2021-07-09 20:07] LABS: BASO # 0.1 x10^3/uL (0.0-0.2); BASO % 0 % (0-3); EOS # 0.2 x10^3/uL (0.0-0.7); EOS % 1 % (0-3); HEMATOCRIT 43.4 % (36.0-47.0); HEMOGLOBIN 13.8 g/dL (12.0-15.5); LYMPH # 0.8 x10^3/uL (1.0-4.8); LYMPH % 4 % (24-48); MEAN CORPUSCULAR HEMOGLOBIN 28 pg (25-35); MEAN CORPUSCULAR HGB CONC 32 g/dL (31-37); MEAN CORPUSCULAR VOLUME 88 fL (79-100); MONO # 1.4 x10^3/uL (0.0-1.1); MONO % 8 % (0-9); NEUT # 15.7 x10^3uL (1.8-7.7); NEUT % 86 % (31-73); PLATELET COUNT 361 x10^3/uL (140-400); RED BLOOD COUNT 4.97 x10^6/uL (3.50-5.40); RED CELL DISTRIBUTION WIDTH 14.3 % (11.5-14.5); WHITE BLOOD COUNT 18.1 x10^3/uL (4.0-11.0)
[2021-07-09] MEDS: LIDO:MAALOX 1:1 20 ML SINGLE DOSE. PO ONE (20:16)
[2021-07-09 20:20] LABS: CALCIUM 8.9 mg/dL (8.5-10.1); CREATININE 0.9 mg/dL (0.6-1.0); GFR 92.3; POTASSIUM 3.6 mmol/L (3.5-5.1)
--- NOTE | 2021-07-09 20:26 | RAD ---
Exam: CT of abdomen and pelvis without contrast INDICATION: Central abdominal pain, Back pain TECHNIQUE: Sequential axial images through the abdomen and pelvis obtained without IV contrast. Sagit geraldine and coronal reformatted images were reconstructed from the axial data and reviewed. Exposure: One or more of the following in the visualized dose reduction techniques were utilized for this examination: 1. Automated exposure control 2. Adjustment of the MA and/or KV according to patient size 3. Use of iterative of reconstructive technique Comparisons: None FINDINGS: Heart size is normal. No pericardial effusion. Visualized lung bases are clear. No pleural effusion. Evaluation of solid organs limited secondary to noncontrast technique. Liver, spleen, pancreas, gallbladder and adrenals are unremarkable. No perinephric inflammation or hydronephrosis. No renal or ureteral calculi are identified. Bladder is decompressed not well evaluated. Uterus is nonenlarged. No abnormal adnexal mass. Moderate amount of stool noted in colon. Appendix is nonidentified. No free intra-abdominal air or fl uid. No obstruction. Abdominal aorta has normal course caliber. No enlarged intra-abdominal lymph nodes are identified. No suspicious osseous lesions or acute fractures. IMPRESSION: 1. Appendix is not identified. 2. No acute process identified within the abdomen or pelvis Electronically signed by: Sonu Weaver MD (07/09/2021 8:23 PM) [facility]
[2021-07-09 20:31] LABS: CLARITY,URINE CLEAR; COLOR,URINE YELLOW; GLUCOSE,URINE NEG (NEG)
[2021-07-09 20:32] LABS: BACTERIA,URINE 0 /HPF (0-FEW); NITRITE,URINE NEG (NEG); SQUAMOUS EPITHELIAL CELL,UR FEW /LPF; UROBILINOGEN,URINE 0.2 mg/dL (0.2 mg/dL); WBC,URINE 0 /HPF (0-4)
[2021-07-09 20:33] LABS: AMORPHOUS SEDIMENT,UR PRESENT /HPF; RBC,URINE OCC /HPF (0-2)
[2021-07-09 20:35] LABS: ALBUMIN 3.9 g/dL (3.4-5.0); ALBUMIN/GLOBULIN RATIO 1.1 (1.0-1.7); TOTAL BILIRUBIN 0.6 mg/dL (0.2-1.0); TOTAL PROTEIN 7.6 g/dL (6.4-8.2)
--- NOTE | 2021-07-09 21:01 | RAD ---
Single view chest dated 07/09/2021 8:58 PM: COMPARISON: None Clinical Indication: Chest pain. Findings: Single upright portable exam of the chest was performed. Heart size and mediastinal contours are with in normal limits. Lungs are clear. No consolidation or pleural effusion. No pneumothorax. IMPRESSION: No acute radiographic abnormality. Electronically signed by: Dagoberto Shipman MD (07/09/2021 8:58 PM) [facility]
[2021-07-09 21:16] LABS: % EOS 4 % (0-5); % LYMPHS 5 % (24-48); % MONOS 5 % (0-10); % SEGS 86 % (35-66)
[2021-07-09 21:17] LABS: PLT ESTIMATE ADEQUATE (ADEQUATE); TOXIC VACUOLATION PRESENT
== END 2021-07-09 21:10 | disposition home or self-care (01) ==
LOC: ER 18:47
DX: R10.84 Generalized abdominal pain (principal); R11.10 Vomiting, unspecified
CPT/HCPCS: 36415; 71045; 74176; 80053; 81001; 81025; 83690; 85007; 85025; 96372; 96374; 99285; J2270; J2765